=== PATIENT | male | born 1945 | race Caucasian/White ===

== ENCOUNTER 2018-11-25 05:03 | Inpatient (IN) | payer OTHER ==
[2018-11-25 05:46] LABS: PTT 99.8 SEC (22.9-36.1)
[2018-11-25 05:47] LABS: #Eosinphils 0.2 thou/uL (0.0-0.7); #Lymphocytes 0.8 thou/uL (1.20-3.40); #Monocytes 0.3 thou/uL (0.11-0.59); #Neutrophils 4.9 thou/uL (1.40-6.50); %Basophils 0.3 % (0.0-1.0); %Eosinophils 2.5 % (0.0-10.0); %Lymphocytes 12.2 % (21.0-51.0); %Monocytes 5.3 % (0.0-10.0); %Neutrophils 79.6 % (42.0-75.0); Hemoglobin 5.7 g/dL (14.0-18.0); Mean Corpuscular HGB CONC 33.5 g/dL (32.0-36.0); Mean Corpuscular Hemoglobin 30.1 pg (27.0-31.0); Mean Corpuscular Volume 89.6 fL (78.0-98.0); Platelet Count 192 thou/uL (130-400); RBC Distribution Width 14.9 % (11.5-14.5); Red Blood Cell (RBC) Count 1.89 mill/uL (4.70-6.10); White Blood Cell (WBC) Count 6.2 thou/uL (4.8-10.8)
[2018-11-25] MEDS ORDERED: Pantoprazole 40 MG VIAL ONE (05:49)
[2018-11-25] MEDS ORDERED: Ondansetron PF 4 MG/2 ML Vial ONE (05:57)
[2018-11-25 05:59] LABS: ALT (SGPT) 9 U/L (8-55); AST (SGOT) 15 U/L (5-34); Albumin 3.2 g/dL (3.4-4.8); Alkaline Phosphatase 100 U/L (40-150); Anion Gap 18 mmol/L (10-20); BUN (Urea Nitrogen) 112 mg/dL (8.4-25.7); Bilirubin, Total 0.3 mg/dL (0.2-1.2); Calc. Creatinine Clearance 0 mL/min (70-130); Calcium 6.1 mg/dL (7.8-10.44); Carbon Dioxide 23 mmol/L (23-31); Chloride 103 mmol/L (98-107); Estimated GFR-MDRD 22; Globulin 2.9 g/dL (2.4-3.5); Glucose 99 mg/dL (83-110); Lipase 38 U/L (8-78); Potassium 3.5 mmol/L (3.5-5.1); Protein, Total 6.1 g/dL (5.8-8.1); Sodium 140 mmol/L (136-145)
[2018-11-25 06:10] LABS: Prothrombin Time 61.4 SEC (12.0-14.7)
[2018-11-25 06:12] LABS: INR-International Normal Ratio 7.3
[2018-11-25 06:22] LABS: Bacteria/HPF None Seen HPF (None Seen); Bilirubin Negative (Negative); Blood, Urine Trace (Negative); Clarity Clear (Clear); Glucose, Urine (Dipstick) Normal (Negative); Leukocyte Negative Leu/uL (Negative); Nitrite Negative (Negative); Protein, Urine (Dipstick) 50 mg/dL (Neg-Trace); RBC/HPF 0-3 HPF (0-3); Squamous Epithelial None Seen HPF (0-3); Urobilinogen Normal mg/dL (Less than 2); WBC/HPF 0-3 HPF (0-3)
[2018-11-25 06:25] LABS: CKMB 6.7 ng/mL (0-6.6)
[2018-11-25] MEDS ORDERED: Phytonadione 10 MG/ML AMP SLOW IVP SCH (06:30)
[2018-11-25] MEDS ORDERED: HUMAN PROTHROMBIN COMPLX IV SCH (06:30)
[2018-11-25] MEDS ORDERED: ADMIXTURE FEE IV SCH (06:30)
[2018-11-25] MEDS ORDERED: Phytonadione 10 MG/ML AMP ONE (07:21)
[2018-11-25] MEDS: Sodium Chloride 0.9% 1,000 ML IV SCH ×3 (08:38→22:54)
[2018-11-25 08:45] LABS: INR-International Normal Ratio 2.2; Prothrombin Time 23.9 SEC (12.0-14.7)
--- NOTE | 2018-11-25 09:18 | HP ---
CHIEF COMPLAINT: Vomiting blood, feeling weak and tired. HISTORY OF PRESENT ILLNESS: The patient is a 73-year-old inmate, who was brought to the emergency room after he started having a bloody vomiting in [facility]. He was found to be on Coumadin, and his INR was elevated at above than 7, and he was treated with vitamin K and Kcentra, and he is getting admitted to the hospital. Also, he received vitamin K and normal saline, and started on Protonix drip and IV fluids. He never had this before. He denies any abdominal pain. He denies any black tarry stools, any shawn blood from the rectum. PAST MEDICAL HISTORY: Positive for, 1. Coronary artery disease. 2. Diabetes mellitus type 2. 3. Hyperlipidemia. 4. Hypertension. 5. Osteoarthritis. 6. COPD. 7. Gout. 8. CKD. 9. Heart failure. 10. Anemia. 11. CVA x6. PAST SURGICAL HISTORY: CABG. SOCIAL HISTORY: He is in assisted. He denies any alcohol use, drug use, or cigarette smoking history. MEDICATIONS: 1. Allopurinol 100 mg once a day. 2. Aspirin 81 mg once a day. 3. Atorvastatin 20 mg once a day. 4. Atrovent p.r.n. inhalations. 5. Docusate sodium 100 mg twice a day. 6. Ferrous sulfate 325 mg once a day. 7. Lasix 40 mg twice a day. 8. Omeprazole 20 mg daily. 9. Proventil inhalations p.r.n. 10. Terazosin 10 mg once a day. 11. Verapamil 120 mg once a day. 12. Warfarin 2.5 mg once a day. FAMILY HISTORY: Mother was 84 and she had Alzheimer's dementia, and father was 78 when he passed and he had COPD. REVIEW OF SYSTEMS: All 14 systems were reviewed and they are negative, except for only those symptoms, which are mentioned in the HPI are positive. PHYSICAL EXAMINATION: VITAL SIGNS: Blood pressure is 121/67, pulse is 109, respirations are 18, temperature is 97.8. Pain is at level 9. O2 saturation is 98% on room air. SKIN: Looks very pale. He is able to communicate with me. HEENT: His eyes are PERRLA. Sclerae are nonicteric. Conjunctiva pale. Oral mucosa pale. NECK: Supple. LUNGS: Clear. HEART: S1 and S2. Tachycardic. No S3. No S4. ABDOMEN: Soft, nontender, nondistended. EXTREMITIES: No clubbing, cyanosis, or edema. NEUROLOGICAL: He is alert and oriented x4. There is no any motor or sensory deficit. LABORATORY DATA: White count of 6.2, hemoglobin of 5.7, hematocrit of 16.9, platelet count is 192,000. Coagulation, INR is 7.3, PTT is 61.4, APTT 99.8. Normal electrolytes. BUN of 112, creatinine 2.85, calcium 6.1, albumin 3.2, lipase 38, alkaline phosphatase 100. Rest of chemistry is within normal limits. IMAGING STUDIES: EKG showed sinus tachycardia with ventricular rate of 117 beats per minute with premature atrial complexes. Q-waves in V1 and V2, and some ST-segment depression in V3, V4, V5, and V6. IMPRESSION: 1. Acute gastrointestinal bleeding, most likely upper part of the gastrointestinal tract. He does not have any history of esophageal varices. The patient was started on Protonix, and now he is on Protonix drip. 2. The patient is on Coumadin with supratherapeutic INR status post vitamin K and Kcentra treatment. We will check INR now stat, and we will make decision about the next dose of Kcentra if needed. 3. Severe anemia secondary to #1, and past medical history of anemia. We will transfuse him with 2 units of packed red blood cells and we will have 2 units on hold. 4. Renal failure, that is most likely acute on chronic. We will use IV fluids for now and assess his kidney function later today and tomorrow with BMP. 5. Coronary artery disease with elevated troponin, which is most likely type 2 and myocardial infarction. 6. Diabetes mellitus type 2. 7. Hyperlipidemia. 8. History of hypertension. 9. Osteoarthritis. 10. Chronic obstructive pulmonary disease. 11. History of gout. 12. History of heart failure. 13. History of cerebrovascular accident x6. PLAN: Full admission to ICU. Condition is guarded. IV fluids, normal saline at 125 mL/hour. We will transfuse him with 2 units of packed red blood cells. We will hold 2 more units. We will get GI consult with Dr. Curtis, who is on-call today. We will continue his Protonix drip at 10 mg/hour. We will check his INR and see whether he needs additional dose of Kcentra, if it is more than 1.5. Also, we will reconcile his home medications, and we will get Cardiology involved. Job ID: [id number]
--- NOTE | 2018-11-25 11:56 | CON ---
DATE OF CONSULTATION: 11/25/2018 INDICATION FOR CONSULTATION: A 73-year-old gentleman with a GI bleed and severe anemia. He had been placed recently on Coumadin at a large dose of 7.5 mg a day and has now developed severe bleeding. He started having nausea and vomiting apparently while he was in the senior care, who has been incarcerated for almost 10 or 15 years. He said he had been on Coumadin due to atrial fibrillation. He also has an implantable loop recorder apparently, and he says it is from [employer], but we do not have any other further information. He said he lost the monitor and has not been able to check it recently, but we will try to interrogate that device. Other than that he has had a history of coronary artery disease. He is status post bypass surgery x3, apparently 3 or 4 years ago. He has not had any preop previous stents. He did have some renal insufficiency apparently after the surgery and had been on dialysis, which was stopped about a year ago and he has been relatively stable. He denies any chest pain at this time but EKG did show some nonspecific ST-segment changes in the lateral leads, could be compatible with ischemia. Also, cardiac enzymes are slightly elevated with a troponin I of 0.541, which would not be unusual with someone with severe anemia and history of coronary artery disease and appears to be a type 2 non-myocardial infarction. At this time, he is comfortable. He denies any chest pain or shortness of breath. He did have some mild abdominal discomfort. He complains of mainly his joint pain due to his gout. PAST MEDICAL HISTORY: Significant for coronary artery disease and bypass surgery x3, we are uncertain as to which vessels were bypassed and exact extent of his disease. We will try to obtain those records from [place] where surgery was performed. He has history of type 2 diabetes, hyperlipidemia, hypertension, osteoarthritis. He has gout, COPD. He has chronic kidney disease, creatinine is 2.85. He has some history of congestive heart failure apparently, but I do not have any records whether this is a diastolic or systolic or both. He has had several CVAs in the past. He has had an AV fistula placed in the right forearm. He has had an implantable loop recorder placed. SOCIAL HISTORY: He is incarcerated. He has no alcohol or tobacco abuse at this time. He did smoke in the past, but stopped many years ago obviously. ALLERGIES: HE SAYS HE IS ALLERGIC TO IODINE AND IODINE-CONTAINING PRODUCTS. MEDICATIONS: Prior to admission include, 1. Allopurinol. 2. Aspirin 81 mg a day. 3. Atorvastatin 20 mg a day. 4. Atrovent inhalers. 5. Docusate sodium. 6. Ferrous sulfate 325 mg a day. 7. Lasix 40 mg b.i.d. 8. Omeprazole 20 mg a day. 9. Proventil inhalers as needed. 10. He was taking terazosin 10 mg a day. 11. Verapamil 120 mg once a day. 12. Warfarin 2.5 mg taking three tablets a day, which is equivalent of 7.5 mg daily. He had been on this for quite some time. He was scheduled to be on it for 30 days. Unfortunately, this is obviously too high dose for this patient. FAMILY HISTORY: Mother had Alzheimer's. Father and had history of COPD, age 78. REVIEW OF SYSTEMS: He mainly complained of pain in all of his joints, and he complained of some mild abdominal discomfort, nausea, and vomiting associated with the hematemesis just recently with the elevated INR and the over anticoagulation. He has some difficulty ambulating. He has walked with a walker in the past. Previously, he was in a wheelchair, but has now had therapy and is able to at least walk some. Otherwise, he denied any other complaints on 12-point review of systems. PHYSICAL EXAMINATION: GENERAL: Reveals a pale elderly gentleman, who appears to be very ill. VITAL SIGNS: Blood pressure at this time is 109/56, heart rate is 105 and it shows a sinus rhythm, respiratory rate is 22. He is afebrile, O2 saturation is 100%. HEENT: Shows the head to be normocephalic and atraumatic. Carotid pulses are present. Does not hear any significant bruits. CHEST: Clear to auscultation without rales, rhonchi, or wheezing. CARDIOVASCULAR: Reveals a regular rhythm, slight tachycardia. I do not hear any significant murmurs, heaves, thrills, bruits, or rubs. Normal S1 and S2 present. ABDOMEN: Soft. Mild tenderness is noted. Positive bowel sounds are present. EXTREMITIES: Showed no clubbing or cyanosis. He has obvious evidence of arthritis as well as gouty nodules on the right elbow significantly. He also has a previously placed shunt in the right forearm and the upper arm also extends, but this is occluded. There is no bruit noted. There is no palpable thrill. NEUROLOGIC: He appears to be intact. There are no gross focal motor deficits. LABORATORY DATA: Shows a hemoglobin of 5.7, hematocrit of 16.9, WBC of 6.2, and platelet count of 192,000. INR was 7.3. His BUN is 112, his creatinine is 2.85, potassium is 3.5, sodium is 140, bicarb is 23, chloride is 109, blood sugar is 99. His calcium level is also low at 6.1. MB was 6.7 with a troponin I of 0.541. IMAGING STUDIES: I do not see a chest x-ray. EKG shows a sinus rhythm or sinus tachycardia with nonspecific ST-segment changes in the lateral leads. At this time, he is being given blood. He will need to have a GI evaluation. We will certainly need to hold the anticoagulation. I believe he has already been given vitamin K for reversal of the Coumadin. In the future, he will need to have a lower dose obviously of the Coumadin. If this is absolutely necessary, he may not be a candidate for Coumadin, may need to be on aspirin alone, if he is able to recover from the GI bleed. IMPRESSION: 1. Acute gastrointestinal bleed due to over anticoagulation with Coumadin. This has now been stopped, and he will have a GI evaluation. He will no longer be able to be on Coumadin at this time. Maybe perhaps in the future if they are able to cauterize the ulcer, and if once this has healed, he maybe able to go back on Coumadin, but at a lower dose. 2. Coronary artery disease. He does have some nonspecific ST-segment changes and appears to have had a type 2 myocardial infarction, most likely due to demand ischemia associated with the anemia. 3. Severe anemia associated with gastrointestinal bleed. 4. Type 2 diabetes. This will be dealt with by the primary care service. 5. Hypertension. He is actually hypotensive at this time and appears to be stable. He has had no significant other acute problems associated with the hypotension. He has had some history of congestive heart failure. We may obtain an echocardiogram. He said recently earlier this year he was in [place] and had an echocardiogram performed at that time. We will try to obtain those records. Would suggest maybe an echocardiogram later depending on the status of the patient and how he recovers from the GI bleed. 6. History of cerebrovascular accidents in the past. He is able to speak and has not had any gross focal motor deficit at this time. No major weaknesses. I will be more than happy to continue to follow the patient with you. Can trend his enzymes. At this time, obviously he is not a candidate for any type of intervention. He is not a candidate for oral anticoagulation or heparin or any other anticoagulation at this time. Hopefully, these will stabilize. We will try to obtain the records from [place] as to exactly what the type of bypasses he had and also to the extent of his coronary artery disease. We will also need to obtain the echocardiogram results for evaluation of the ejection fraction. At this time, I have no significant further recommendations in this patient who is obviously severely anemic. Job ID: [id number]
[2018-11-25] MEDS: Ondansetron PF 4 MG/2 ML Vial IVP PRN (13:25)
[2018-11-25] MEDS: Pantoprazole 80 MG, Admixture Fee 1 EACH in Sodium Chloride 0.9% 100 ML IVPB SCH (15:34)
[2018-11-25] MEDS: Promethazine HCl 12.5 MG in Sodium Chloride 0.9% 50 ML IVPB PRN ×2 (15:34→23:32)
[2018-11-25] MEDS: Acetaminophen 325 MG TAB PO PRN (16:12)
[2018-11-25 16:30] LABS: Hemoglobin 8.2 g/dL (14.0-18.0)
--- NOTE | 2018-11-25 20:44 | CON ---
DATE OF CONSULTATION: 11/25/2018 REASON FOR CONSULTATION: Hematemesis, anemia. CONSULTING PROVIDER: Sami Hand MD HISTORY OF PRESENT ILLNESS: The patient is a 73-year-old male with past medical history of coronary artery disease, diabetes, hyperlipidemia, hypertension, osteoarthritis, COPD, gout, chronic kidney disease, chronic anemia, congestive heart failure, and cerebrovascular accident x6, presenting with complaints of hematemesis. He states that he was in his usual state of health until earlier today when he began to have increased GI upset, weakness, lightheadedness, and increased nausea. Ultimately, this culminated into a dark coffee-ground emesis x1 in addition to multiple dry heaves afterward, but no additional episodes of this coffee-ground material nor any gross hematemesis. He then had approximately 3 darker colored/black bowel movements over the next 6 to 12 hours that were semi-solid to liquid in consistency and possibly contained a small amount of bright red blood per rectum. With the increased vomiting of darker colored material, it was concerning for possible GI bleeds. He was ultimately transferred to [facility] for further evaluation. On evaluation in the ED, he was noted to have significantly decreased hemoglobin and hematocrit as well as a profoundly high INR of approximately 7. He was ultimately treated with vitamin K and Kcentra, and admitted to the [facility] for further evaluation and management. Currently, he states that his right shoulder, right arm, wrists, and knees heard in addition to continue nausea and vomiting with more dry heaves than actual emesis. However, he denies any fevers, chills, abdominal pain, constipation, dysphagia, odynophagia, or recent unexplained weight loss. REVIEW OF SYSTEMS: A 10-category review of systems was obtained with all responses negative except for the pertinent positives as listed in HPI. PAST MEDICAL HISTORY: As per HPI. PAST SURGICAL HISTORY: Coronary artery bypass graft. FAMILY HISTORY: Denies any GI malignancies. SOCIAL HISTORY: Denies any tobacco, alcohol, or illicit drug use. He is currently incarcerated in penitentiary. OUTPATIENT MEDICATIONS: Reviewed. ALLERGIES: IODINE. PHYSICAL EXAMINATION: VITAL SIGNS: Temperature 98.1, pulse 100, blood pressure 95/40, respiratory rate 22, and saturating 99% on room air. GENERAL: The patient was lying in bed, in mild distress. Alert and oriented x4. HEENT: Normocephalic and atraumatic. NECK: Supple. No JVD or scleral icterus noted. CARDIOVASCULAR: Regular rate and rhythm, although be at tachycardic rate. No discernible murmurs, gallops, or rubs. RESPIRATORY: Clear to auscultation bilaterally with no discernible wheezes or rales. ABDOMEN: Normoactive bowel sounds. Soft, nontender, nondistended. EXTREMITIES: No cyanosis, clubbing, or edema. LABORATORY DATA: CBC with a white blood cell count of 6.2, hemoglobin 5.7, hematocrit 16.9, platelets 192. INR went from 7.3 to 2.2 with administration of vitamin K and Kcentra. Chemistry with a sodium of 140, potassium 3.5, chloride 103, CO2 23, BUN 112, creatinine 2.85, glucose 99, AST 15, ALT 9, alkaline phosphatase 100, total bilirubin 0.3, albumin 3.2. IMAGING DATA: No current GI imaging is available for review. ASSESSMENT AND PLAN: The patient is a 73-year-old male with past medical history of coronary artery disease, diabetes, hyperlipidemia, hypertension, osteoarthritis, chronic obstructive pulmonary disease, gout, chronic kidney disease, chronic anemia, congestive heart failure, and cerebral vascular accident x6, currently on full anticoagulation with Coumadin, presenting with hematemesis and a significant anemia related to a supratherapeutic INR of 7. 1. Hematemesis. 2. The patient had acute onset of black colored emesis earlier this morning that was accompanied by black-colored stools concerning for an upper gastrointestinal bleed. Upon initial evaluation in [facility], he was noted to have a significantly decreased hemoglobin and hematocrit in addition to a profoundly high INR of 7. He was ultimately given vitamin K and Kcentra, and his INR has corrected to 2.2 at this time. However, given his decreased hemoglobin and hematocrit in the black-colored emesis, he is strongly concerning for an upper gastrointestinal bleeding source related to his supratherapeutic INR. With the supratherapeutic INR, he could be bleeding from any mucosal surface with the differential including esophagitis, gastritis, duodenitis, arteriovenous malformation, Dieulafoy lesion, hiatal hernia, peptic ulcer disease, and/or gastrointestinal neoplasm. RECOMMENDATIONS: 1. We will continue to trend his hemoglobin and hematocrit and transfuse as necessary to maintain hemoglobin and hematocrit of 7/21. 2. Continue to monitor clinically for signs of active GI bleeding. 3. Continue with reversal of warfarin with vitamin K agonist. 4. We will continue Protonix drip until after upper endoscopy. 5. We will place the patient on n.p.o. status with plans for EGD tomorrow morning once the patient's INR has been corrected and he has been properly resuscitated with blood product. We will continue to follow. Please call with any questions. Job ID: [id number]
[2018-11-25 22:54] LABS: Hemoglobin 7.2 g/dL (14.0-18.0)
[2018-11-26 00:35] LABS: Hemoglobin 6.9 g/dL (14.0-18.0)
[2018-11-26] MEDS: Acetaminophen 325 MG TAB PO PRN (02:33)
[2018-11-26] MEDS: Pantoprazole 80 MG, Admixture Fee 1 EACH in Sodium Chloride 0.9% 100 ML IVPB SCH (02:37)
[2018-11-26] MEDS: traMADol HCl 50 MG TAB PO PRN (03:48)
[2018-11-26 03:56] LABS: Anion Gap 20 mmol/L (10-20); BUN (Urea Nitrogen) 114 mg/dL (8.4-25.7); Calc. Creatinine Clearance 22 mL/min (70-130); Carbon Dioxide 16 mmol/L (23-31); Chloride 112 mmol/L (98-107); Estimated GFR-MDRD 21; Glucose 78 mg/dL (83-110); Potassium 3.6 mmol/L (3.5-5.1); Sodium 144 mmol/L (136-145)
[2018-11-26 03:59] LABS: Calcium 5.9 mg/dL (7.8-10.44)
[2018-11-26] MEDS: Ondansetron PF 4 MG/2 ML Vial IVP PRN (06:14)
[2018-11-26] MEDS ORDERED: Ketamine 50 MG/ML (10ML VIAL) ONE (07:50)
[2018-11-26] MEDS ORDERED: Promethazine HCl 25 MG/ML VIAL SLOW IVP PRN (08:00)
[2018-11-26] MEDS ORDERED: Promethazine HCl 25 MG/ML VIAL IM PRN (08:00)
[2018-11-26] MEDS ORDERED: Ondansetron HCl/PF 4 MG/2 ML Vial IVP PRN (08:00)
[2018-11-26] MEDS ORDERED: Albuterol Sulfate 1.25 MG/3 ML NEB ONE (08:47)
[2018-11-26] MEDS ORDERED: Promethazine HCl 25 MG/ML VIAL ONE (09:13)
[2018-11-26] MEDS: Sodium Chloride 0.9% 1,000 ML IV SCH ×3 (09:46→21:18)
[2018-11-26 10:03] LABS: Hemoglobin 8.3 g/dL (14.0-18.0)
--- NOTE | 2018-11-26 10:08 | OP ---
DATE OF PROCEDURE: 11/26/2018 PROCEDURE PERFORMED: Esophagogastroduodenoscopy with control of hemorrhage. INDICATIONS FOR PROCEDURE: Hematemesis, melena, supratherapeutic INR. DESCRIPTION OF PROCEDURE: After the risks and benefits of the procedure were explained to the patient including risks of bleeding, infection, perforation, reactions to anesthesia, aspiration, and/or pain, informed consent was obtained. The patient was then taken to the endoscopy suite, where general anesthesia was administered with endotracheal tube intubation. Once the patient was sedated and intubated, he was maneuvered into the left lateral decubitus position. Once the patient was in appropriate position, the standard gastroscope was introduced into the mouth with intubation of the esophagus, stomach, and the proximal small intestines with the findings listed below. The patient tolerated the procedure well with no immediate perioperative complications. Upon conclusion of the procedure, all equipment was removed from the patient and he was transferred to PACU in satisfactory condition. FINDINGS: Esophagus: Normal-appearing mucosa was seen in the proximal, mid, and distal esophagus. There was no evidence of erosions, ulcerations, mass, lesions, or active/recent bleeding. Stomach: Two patches of superficial ulceration/erosions were seen in the gastric cardia and fundus measuring approximately 1 to 1.5 cm in diameter. The superficial erosion seen in the gastric cardia did not exhibit any evidence of active/recent bleeding. However, the patch within the gastric fundus did have an area of deeper ulceration with an overlying clot with one of these ulcerations measuring 1 to 2 mm in size. This area of superficial ulceration with high-risk stigmata was then treated with bipolar cauterization with a 7-Vietnamese bipolar cautery probe with good hemostasis achieved after the maneuver and no further bleeding afterwards. 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 Lastly, a small red spot was seen in the proximal gastric fundus with a white center concerning for a fibrin clot. Given this high-risk stigmata, this was also treated with bipolar cauterization with a 7-Vietnamese probe with good hemostasis achieved. Otherwise, normal-appearing mucosa was seen in the distal gastric body, greater curvature, antrum, and incisura. There were no other lesions indicative of a possible bleeding source. There was no evidence of mass, lesions, or blood throughout the entire stomach other than the small clot as stated above. Duodenum: Normal-appearing mucosa was seen in both the duodenal bulb and second portion of the duodenum. There was no evidence of erosions, ulcerations, mass, lesions, or active/recent bleeding. IMPRESSION: 1. Two patches of superficial erosion/ulcerations seen in the gastric cardia and fundus with the fundus patch exhibiting an overlying clot concerning for gastrointestinal bleeding, now status post bipolar cauterization. 2. 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 3. 1 to 2 mm red spot with a possible fibrin clot in the gastric fundus status post bipolar cauterization. RECOMMENDATIONS: 1. We will continue to trend his H and H and transfuse as necessary to maintain an H and H of 7/21. 2. Continue to monitor clinically for signs of active GI bleeding. 3. Can transfer the patient to pantoprazole 40 mg IV b.i.d. 4. Can place the patient on a clear liquid diet for today and advance possibly tomorrow. 5. We will continue to monitor in IMCU setting format for today, and if stable, could potentially be downgraded tomorrow. 6. Would avoid any NSAIDs during this admission or anticoagulation. We will continue to follow. Please call with any questions. Job ID: [id number]
[2018-11-26] MEDS ORDERED: Prevnar 13-Val Conj/PF 0.5 ML SYRINGE IM ONE (10:45)
[2018-11-26 11:18] LABS: CKMB 190.2 ng/mL (0-6.6)
--- NOTE | 2018-11-26 12:32 | CON ---
DATE OF CONSULTATION: HISTORY OF PRESENT ILLNESS: He is a 73-year-old gentleman from the [facility] in [place], presented with nausea, vomiting, and GI bleed. List of medical problems that brought in from the unit, which includes multiple. This morning, he is feeling better. No further nausea or vomiting. He underwent an endoscopy, I am told. PAST MEDICAL HISTORY: CHF, coronary artery disease, hypertension, hyperlipidemia, diabetes, COPD, former smoker, BPH, hepatitis C, chronic back problems, chronic renal failure. MEDICATIONS: 1. Terazosin 10. 2. Verapamil 120. 3. Atrovent inhaler. 4. Ferrous sulfate. 5. Lipitor. 6. Aspirin. 7. Allopurinol. 8. Albuterol. 9. Coumadin 3. 10. Verapamil 240. 11. Omeprazole 20. 12. Lasix 40. He is now on a Protonix drip. ALLERGIES: IODINE. SOCIAL HISTORY: Tobacco, quit 15 years ago. PAST SURGICAL HISTORY: His surgeries are otherwise included previous CABG apparently. REVIEW OF SYSTEMS: Negative. PHYSICAL EXAMINATION: VITAL SIGNS: Saturations are 98%, blood pressure 91/40, respiratory rate is 18. CHEST: No wheezing or crackles. CARDIAC: Normal S1 and S2. No gallop. ABDOMEN: No mass. IMPRESSION: Chronic obstructive pulmonary disease, gastrointestinal bleed, coronary artery disease, hepatitis, hypertension, atrial fibrillation. PLAN: X-ray being ordered. Neb treatment initiated. GI bleed status post endoscopy. Plan on Protonix, supportive care. We will follow while in the MICU. Consultation note, 70 minutes, 50% direct patient care. Job ID: [id number]
--- NOTE | 2018-11-26 13:06 | PRG ---
DATE OF SERVICE: 11/26/2018 SUBJECTIVE: The patient is seen and examined at the bedside. He just came back from his procedure. He says that it was quite rough, but he talked to the doctor who found some spots, which were most likely the source of bleeding and he cauterized those spots. OBJECTIVE: VITAL SIGNS: Blood pressure is 91/49, pulse is 84, respiratory rate is 21, O2 saturation is 91%. SKIN: Pale. HEENT: Conjunctivae, palish. Sclerae are nonicteric. Oral mucosa is moist. LUNGS: Clear. HEART: S1 and S2 normal. No S3. No S4. ABDOMEN: Soft, nontender. Bowel sounds are present. EXTREMITIES: No clubbing, cyanosis, or edema. He has his hands and feet in cuffs. NEUROLOGIC: He is able to answer my questions. LABORATORY DATA: Hemoglobin of 8.3, hematocrit 24.4. Sodium of 144, potassium 3.6, chloride 112, CO2 of 16, BUN 114, creatinine 2.98, glucose 78, calcium 5.9. Troponin I and CK-MB is 190. IMPRESSION: 1. 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 The patient is switched to pantoprazole 40 mg IV push twice a day. He will be started on clear liquids for today and the diet will be advanced possibly tomorrow. 2. Acute myocardial infarction. Because of the current active bleeding, we were not able to use any anti-platelet medications or anticoagulation medication. Cardiology is following. Echocardiogram came back with left ventricular ejection fraction estimated at 30% to 35%. 3. Diabetes mellitus, type 2. 4. Hyperlipidemia. 5. History of hypertension. 6. Osteoarthritis. 7. Chronic obstructive pulmonary disease. 8. History of gout. 9. History of heart failure. 10. History of cerebrovascular accident x6. DISCUSSION: The situation is very difficult because at this point, the patient's bleeding is stopped, but he developed acute VA. We were not able to use any antiplatelets or anticoagulation on this patient because of the acute GI bleeding and Cardiology will make recommendations. We will continue his Protonix in IV push form. As mentioned above, his diet will be started on clear liquids and see how he tolerates that and it will be advanced most likely tomorrow. He is in high risk for cardiac arrhythmias and because of his severe anemia, although his hemoglobin is better today at the level of 8.3. Job ID: [id number]
[2018-11-26] MEDS ORDERED: Calcium Gluc 4.6 MEQ/10 ML (100 MG/ML) SLOW IVP SCH (13:07)
--- NOTE | 2018-11-26 13:34 | RAD ---
EXAM: XR Chest 1 View Portable PROVIDED CLINICAL HISTORY: Congestive heart failure COMPARISON: 10/22/2016 FINDINGS: Cardiac silhouette appears enlarged, which may be least partially on the basis of portable technique. Median sternotomy changes are noted. Vascular calcification is seen. Implanted loop recorder device overlies the left chest. Blunting of the left costophrenic angle. Prominence of the pulmonary vasculature. No evidence for pneumothorax or focal consolidation. IMPRESSION: Cardiomegaly and prominence of the pulmonary vasculature may reflect the provided clinical history of congestive failure. Blunting of left costophrenic angle may reflect small pleural effusion.
[2018-11-26 16:01] LABS: CKMB 152.9 ng/mL (0-6.6)
--- NOTE | 2018-11-26 16:07 | CON ---
DATE OF CONSULTATION: 11/26/2018 CONSULTING PHYSICIAN: Dr. Sami Hand. REASON FOR CONSULTATION: Acute kidney injury and hypocalcemia. REASON FOR ADMISSION: Vomiting. HISTORY OF PRESENT ILLNESS: This is a 73-year-old male with history of coronary artery disease, diabetes, hypertension, hyperlipidemia, CKD, gout, came to the hospital with above complaints and was found to be hypocalcemic. He does have a history of end-stage renal disease, was on dialysis for a while and it was taken off. The patient denies any chest pain, but his troponin is elevated. No nausea or vomiting. No abdominal pain. PAST MEDICAL HISTORY: Positive for; 1. Coronary artery disease. 2. Type-2 diabetes. 3. Hypertension. 4. Hyperlipidemia. 5. Osteoarthritis. 6. COPD. 7. Gout. 8. CKD. 9. CHF. 10. Anemia. 11. CVA. PAST SURGICAL HISTORY: CABG. HOME MEDICATIONS: Reviewed. ALLERGIES: IODINE AND IODIDE. SOCIAL HISTORY: No smoking, alcohol, or illicit drugs. FAMILY HISTORY: No history of kidney disease. REVIEW OF SYSTEMS: CONSTITUTIONAL: Negative for weight loss or gain, ability to conduct usual activities. SKIN: Negative for rash, itching. EYES: Negative for double vision, pain. ENT/MOUTH: Negative for nose bleeding, neck stiffness, pain, tenderness. CARDIOVASCULAR: Negative for palpitations, dyspnea on exertion, orthopnea. RESPIRATORY: Negative for shortness of breath, wheezing, cough, hemoptysis, fever or night sweats. GASTROINTESTINAL: Negative for poor appetite, abdominal pain, heartburn, nausea, vomiting, constipation, or diarrhea. GENITOURINARY: Negative for urgency, frequency, dysuria, nocturia. MUSCULOSKELETAL: Negative for pain, swelling. NEUROLOGIC/PSYCHIATRIC: Negative for anxiety, depression. ALLERGY/IMMUNOLOGIC: Negative for skin rash, bleeding tendency. PHYSICAL EXAMINATION: GENERAL: This is a well-built male, in no apparent distress. VITAL SIGNS: Temperature 98.0, pulse 94, respiratory rate 20, and blood pressure 150/74. HEENT: Atraumatic, normocephalic. Oral mucosa moist. NECK: Supple. CARDIOVASCULAR: S1 and S2 heard. Rate and rhythm are regular. RESPIRATORY: Clear to auscultation. GASTROINTESTINAL: Abdomen is soft. MUSCULOSKELETAL: 1+ edema. DERMATOLOGIC: No skin rash. NEUROLOGIC: Alert and awake. PSYCHIATRIC: Normal mood and affect. LABORATORY DATA: Hemoglobin is 8.3. Potassium is 3.6, BUN is 114, creatinine is 2.9. ASSESSMENT AND PLAN: 1. Acute kidney injury on chronic kidney disease stage 4. No acute indication for dialysis. 2. Elevated BUN. 3. Elevated troponin. 4. Cardiorenal syndrome. 5. Anemia, status post transfusion. 6. Hypocalcemia. The patient has history of . We will start on calcium supplements with vitamin D. Check vitamin D levels and PTH level. We will monitor. Continue supplements as tolerated. Thank you for the consult. Job ID: [id number]
[2018-11-26] MEDS ORDERED: Ondansetron PF 4 MG/2 ML Vial ONE (16:08)
[2018-11-26] MEDS ORDERED: Rocuronium Bromide 10 MG/ML (10ML VIAL) ONE (16:08)
[2018-11-26] MEDS ORDERED: Succinylcholine Chloride 20 MG/ML 10 ml SYRINGE FS ONE (16:08)
[2018-11-26] MEDS: Calcium Carbonate 500 MG TAB PO SCH (17:07)
[2018-11-26] MEDS: Pantoprazole 40 MG VIAL IVP SCH (21:17)
[2018-11-27 05:59] LABS: #Eosinphils 0.2 thou/uL (0.0-0.7); #Lymphocytes 0.5 thou/uL (1.20-3.40); #Monocytes 0.5 thou/uL (0.11-0.59); #Neutrophils 6.3 thou/uL (1.40-6.50); %Basophils 0.3 % (0.0-1.0); %Eosinophils 2.6 % (0.0-10.0); %Lymphocytes 6.5 % (21.0-51.0); %Monocytes 6.4 % (0.0-10.0); %Neutrophils 84.2 % (42.0-75.0); Hemoglobin 7.2 g/dL (14.0-18.0); Mean Corpuscular HGB CONC 34.4 g/dL (32.0-36.0); Mean Corpuscular Hemoglobin 31.3 pg (27.0-31.0); Mean Corpuscular Volume 91.2 fL (78.0-98.0); Mean Platelet Volume 7.3 fL (7.4-10.4); Platelet Count 182 thou/uL (130-400); RBC Distribution Width 14.9 % (11.5-14.5); White Blood Cell (WBC) Count 7.5 thou/uL (4.8-10.8)
[2018-11-27 06:22] LABS: Anion Gap 12 mmol/L (10-20); BUN (Urea Nitrogen) 92 mg/dL (8.4-25.7); Calc. Creatinine Clearance 21 mL/min (70-130); Carbon Dioxide 22 mmol/L (23-31); Chloride 115 mmol/L (98-107); Estimated GFR-MDRD 19; Glucose 103 mg/dL (83-110); Sodium 146 mmol/L (136-145)
[2018-11-27 06:23] LABS: CK (CPK) 942 U/L (30-200); Phosphorus 3.6 mg/dL (2.3-4.7)
[2018-11-27 06:24] LABS: Calcium 5.7 mg/dL (7.8-10.44); Potassium 2.9 mmol/L (3.5-5.1)
--- NOTE | 2018-11-27 07:43 | PDOC.HOSPP ---
- Subjective Encounter Date: 11/27/18 Encounter Time: 07:41 Subjective: much improved, no specificc complaint - Objective Vital Signs & Weight: Vital Signs (12 hours) Temp Pulse Resp Pulse Ox 11/27/18 07:23 97.7 F 11/27/18 07:08 97 18 11/27/18 04:00 98.0 F 11/27/18 00:00 98.5 F 11/26/18 20:00 98.9 F 98 Weight Weight 163 lb 12.855 oz Most Recent Monitor Data Heart Rate from ECG 100 NIBP 110/55 NIBP BP-Mean 73 Respiration from ECG 23 SpO2 95 I&O: 11/26/18 11/27/18 11/28/18 06:59 06:59 06:59 Intake Total 2635 2300 Output Total 350 550 Balance 2285 1750 Result Diagrams: 11/27/18 05:41 11/27/18 05:41 Additional Labs: Accuchecks 11/26/18 08:44 POC Glucose 100 Hospitalist ROS - Medication Medications: Active Medications Generic Name Dose Route Start Last Admin Trade Name Freq PRN Reason Stop Dose Admin Acetaminophen 650 mg 11/25/18 08:13 11/26/18 02:33 Tylenol PO 650 mg Q4H PRN Administration Headache/Fever/Mild Pain (1-3) Calcium Carbonate 500 mg 11/26/18 17:00 11/26/18 17:07 Oscal-500 PO 500 mg TID-WM FERNANDO Administration Promethazine HCl 12.5 mg/ 50.5 mls @ 202 mls/hr 11/25/18 14:52 11/25/18 23:32 Sodium Chloride IVPB 50.5 mls Q6H PRN Administration Nausea Sodium Chloride 1,000 mls @ 75 mls/hr 11/26/18 07:48 11/26/18 21:18 Normal Saline 0.9% IV 1,000 mls .[id number] FERNNADO Administration Ondansetron HCl 4 mg 11/25/18 08:13 11/26/18 06:14 Zofran IVP 4 mg Q6H PRN Administration Nausea/Vomiting Pantoprazole Sodium 40 mg 11/26/18 21:00 11/26/18 21:17 Protonix IVP 40 mg Q12HR FERNANDO Administration Sodium Chloride 10 ml 11/26/18 09:00 11/26/18 21:18 Flush - Normal Saline IVF 10 ml Q12HR FERNANDO Administration Tramadol HCl 50 mg 11/26/18 03:33 11/26/18 03:48 Ultram PO 50 mg Q6H PRN Administration Moderate Pain (4-6) - Exam General Appearance: NAD Neck: no JVD Heart: RRR, no murmur Respiratory: CTAB, no wheezes Gastrointestinal: soft, non-distended, normal bowel sounds Extremities: no cyanosis, no clubbing, no edema Hosp A/P (1) Anemia due to blood loss, acute Code(s): D62 - ACUTE POSTHEMORRHAGIC ANEMIA Status: Acute (2) Upper gastrointestinal hemorrhage Code(s): K92.2 - GASTROINTESTINAL HEMORRHAGE, UNSPECIFIED Status: Acute (3) Warfarin-induced coagulopathy Code(s): D68.32 - HEMORRHAGIC DISORD D/T EXTRINSIC CIRCULATING ANTICOAGULANTS; T45.515A - ADVERSE EFFECT OF ANTICOAGULANTS, INITIAL ENCOUNTER Status: Acute (4) Atrial fibrillation with controlled ventricular response Code(s): I48.91 - UNSPECIFIED ATRIAL FIBRILLATION Status: Acute (5) CAD (coronary artery disease) Code(s): I25.10 - ATHSCL HEART DISEASE OF [place] CORONARY ARTERY W/O ANG PCTRS Status: Acute Qualifiers: Coronary Disease-Associated Artery/Lesion type: [place] artery [place] vs. transplanted heart: [place] heart Associated angina: without angina Qualified Code(s): I25.10 - Atherosclerotic heart disease of [place] coronary artery without angina pectoris (6) DM type 2 causing CKD stage 4 Code(s): E11.22 - TYPE 2 DIABETES MELLITUS W DIABETIC CHRONIC KIDNEY DISEASE; N18.4 - CHRONIC KIDNEY DISEASE, STAGE 4 (SEVERE) Status: Acute Qualifiers: Diabetes mellitus alf insulin use: without long term acute care registered nurse use Qualified Code(s): E11.22 - Type 2 diabetes mellitus with diabetic chronic kidney disease ; N18.4 - Chronic kidney disease, stage 4 (severe) (7) HTN (hypertension) Code(s): I10 - ESSENTIAL (PRIMARY) HYPERTENSION Status: Chronic Qualifiers: Hypertension type: essential hypertension Qualified Code(s): I10 - Essential (primary) hypertension - Plan Consults: Palliative Care cont serial H&H, transfuse for Hg< 7 cont iv PPI hold anticoag selected home meds
[2018-11-27] MEDS ORDERED: Potassium Chloride 20 MEQ TAB PO SCH (08:00)
[2018-11-27] MEDS ORDERED: Magnesium 2 GM/50 ML 2 GM in Premix Bag 1 BAG IVPB SCH (08:45)
--- NOTE | 2018-11-27 09:59 | PRG ---
DATE OF SERVICE: 11/27/2018 SUBJECTIVE: This morning, he is better. OBJECTIVE: VITAL SIGNS: Temperature 97, pulse 70, respiratory rate 18, and blood pressure 110/55. CHEST: No wheezing or crackles. CARDIAC: Normal S1 and S2. No gallops. ABDOMEN: No masses. LABORATORY DATA: Creatinine is 3, BUN is 92, and calcium 5.7. H and H of 7 and 21 and platelet count is 182. ASSESSMENT: 1. Gastrointestinal bleed. 2. Azotemia. 3. Chronic obstructive pulmonary disease. PLAN: Continue Protonix. Supportive care, PT. Slow hydration. We will follow. Job ID: [id number]
[2018-11-27] MEDS: Ferrous Sulfate 325 MG TAB PO SCH (10:10)
[2018-11-27] MEDS: Calcium Carbonate 500 MG TAB PO SCH ×3 (10:10→17:14)
[2018-11-27] MEDS: Allopurinol 100 MG TAB PO SCH (10:10)
[2018-11-27] MEDS: Atorvastatin Calcium 20 MG TAB PO SCH (10:11)
[2018-11-27] MEDS: Terazosin HCl 5 MG CAP PO SCH (10:11)
[2018-11-27] MEDS: Ergocalciferol 1.25 MG(50,000 UNITS) CAP PO SCH (10:11)
[2018-11-27] MEDS: Pantoprazole 40 MG VIAL IVP SCH ×2 (10:15→20:50)
--- NOTE | 2018-11-27 11:14 | PRG ---
DATE OF SERVICE: 11/27/2018 REASON FOR CONSULTATION: Hematemesis, anemia, gastric ulcers. SUBJECTIVE: The patient did well overnight with no acute events or problems per the patient and per nursing staff. He has not had any further episodes of hematemesis or melena. He states that his abdominal discomfort has also subsided and that he is "150% better." Currently, he denies any nausea, vomiting, fevers, chills, abdominal pain, hematemesis, melena, or hematochezia. OBJECTIVE: VITAL SIGNS: Temperature 97.7, pulse 97, blood pressure 110/55, respiratory rate 18, and saturating 95% on room air. GENERAL: The patient was lying in bed, in no acute distress. Alert and oriented x4. CARDIOVASCULAR: Tachycardic rate, but regular rhythm. RESPIRATORY: Clear to auscultation bilaterally. ABDOMEN: Normoactive bowel sounds. Soft, nontender, and nondistended. EXTREMITIES: No cyanosis, clubbing, or edema. LABORATORY DATA: CBC with a white blood cell count of 7.5, hemoglobin 7.2, hematocrit 21, and platelets 182. Chemistry with a sodium of 146, potassium 2.9, chloride 115, CO2 of 22, BUN 92, creatinine 3.23, and glucose 103. IMAGING DATA: The patient underwent upper endoscopy on November 26, 2018, which showed 2 patches of superficial ulceration in the gastric cardia and fundus with a clot overlying one of these patches that was subsequently treated with bipolar cauterization. A 1-to 2-mm arteriovenous malformation was also seen in the gastric fundus and treated with bipolar cauterization. Lastly, a red spot with what appeared to be a possible fibrin clot was seen in the proximal gastric fundus and again treated with bipolar cauterization with good hemostasis achieved on all 3 sites. ASSESSMENT AND PLAN: The patient is a 73-year-old male with past medical history of coronary artery disease, diabetes, hyperlipidemia, hypertension, osteoarthritis, chronic obstructive pulmonary disease, gout, chronic kidney disease, chronic anemia, congestive heart failure, and cerebrovascular accident on full anticoagulation with Coumadin prior to admission, presenting with hematemesis and significant anemia secondary to a supratherapeutic INR. Hematemesis: The patient initially presented with acute onset of black-colored emesis as well as melenic-type stools consistent with a GI bleed. On admission to [facility], he was noted to have a profoundly high INR of approximately 7. After resuscitative efforts, he underwent upper endoscopy, which showed the presence of 3 sites of potential bleeding that were all treated with bipolar cauterization with good hemostasis achieved. Since that time, he has not had any further episodes of hematemesis nor melena and while his H and H are currently downtrending, it has stabilized somewhat compared to yesterday. Recommendations: 1. We would continue to trend his H and H and transfuse as necessary to maintain an H and H of 7/. 2. Continue to monitor clinically for signs of active GI bleeding. 3. We would continue PPI 40 mg b.i.d. 4. Could potentially advance the patient's diet to full liquid diet today. Non-ST elevation myocardial infarction: The patient is presenting with a prior history of coronary artery disease as well as a stroke for which the patient had been on chronic anticoagulation with Coumadin. However, given his supratherapeutic INR at admission and induce gastrointestinal bleed from sources within the stomach that have now been successfully treated. However, during the course of his acute blood loss, he was noted to have significantly elevated troponins consistent with a non-ST elevation myocardial infarction. He has currently been resuscitated with blood products, which should decrease any sort of demand ischemia on the heart, but given his troponins were greater than 45, it is indicative of underlying cardiac disease. With his recent history of gastrointestinal bleeding, it makes it difficult to fully anticoagulate this patient in the postoperative setting for his non-ST elevation myocardial infarction with no current guidelines regarding the timing of restarting anticoagulation in light of the current clinical situation for this patient. Recommendations: 1. We would continue to trend his troponins for resolution after stopping bleeding and replaced with blood products in light of process of possible demand ischemia. 2. We will consider Cardiology consultation for further recommendations. 3. I would like to hold his anticoagulation for at least another 24 hours, but if deemed appropriate by Cardiology, could potentially restart as early as today given although being with a higher risk of rebleeding from the cauterized sources. We will continue to follow. Please call with any questions. Job ID: [id number]
[2018-11-27] MEDS ORDERED: Magnesium Sulfate 1 GM/2 ML VIAL IM SCH (11:15)
--- NOTE | 2018-11-27 11:48 | PRG ---
DATE OF SERVICE: 11/27/2018 SUBJECTIVE: A 73-year-old gentleman, being seen for acute kidney injury. The patient denied any nausea, vomiting, chest pain. OBJECTIVE: See above. Awake, alert, in no acute distress. VITAL SIGNS: Afebrile, pulse 77, breathing 16, blood pressure 110/55. GENERAL APPEARANCE AND MENTAL STATUS: Fair. HEAD/NECK: Normocephalic. Atraumatic. EYES: EOMI. No deformity. EARS: Clear. No ulcers. NOSE: Intact. No lesions. MOUTH: Clear. No discharge. THROAT: Clear. No exudate. LUNGS: Clear. No crackles. CARDIAC: S1, S2. No rub. ABDOMEN: Benign. Bowel sounds positive. GENITALIA/RECTUM: Albert absent. BACK/EXTREMITIES: Edema 0+. NEUROLOGICAL: Alert and motor intact. SKIN: LYMPHATICS: LABORATORY DATA: Hemoglobin 7.2. Potassium 2.9 and sodium 146. ASSESSMENT AND PLAN: 1. Acute kidney injury, chronic kidney disease, most likely because of acute tubular necrosis. Continue hydration. 2. Hypokalemia, recommend 20 mEq of potassium replacement. 3. Hypernatremia, continue free water. 4. Anemia, stable. Medication based on GFR appropriate. No indication for dialysis, Job ID: [id number]
--- NOTE | 2018-11-27 11:53 | PDOC.CPN ---
- Subjective Date: 11/27/18 Time: 12:04 Interval history: The pt seen and examined. No overnight events. No cardiac complaints. - Objective Allergies/Adverse Reactions: Allergies Allergy/AdvReac Type Severity Reaction Status Date / Time Iodine and Iodide Containing Allergy Verified 11/26/18 05:04 Produc Visit Medications: Current Medications Acetaminophen (Tylenol) 650 mg PO Q4H PRN PRN Reason: Headache/Fever/Mild Pain (1-3) Last Admin: 11/26/18 02:33 Dose: 650 mg Albuterol/Ipratropium (Duoneb) 3 ml NEB TID-RT [facility] Allopurinol (Zyloprim) 100 mg PO DAILY [facility] Last Admin: 11/27/18 10:10 Dose: 100 mg Atorvastatin Calcium (Lipitor) 20 mg PO DAILY [facility] Last Admin: 11/27/18 10:11 Dose: 20 mg Calcitriol (Rocaltrol) 0.25 mcg PO DAILY FERNANDO Calcitriol (Rocaltrol) 0.25 mcg PO ONE [facility] Calcium Carbonate (Oscal-500) 500 mg PO TID-WM [facility] Last Admin: 11/27/18 10:10 Dose: 500 mg Ergocalciferol (Drisdol) 1.25 mg PO Q7DAYS [facility] Last Admin: 11/27/18 10:11 Dose: 1.25 mg Ferrous Sulfate (Feosol) 325 mg PO QAM-WM [facility] Last Admin: 11/27/18 10:10 Dose: 325 mg Promethazine HCl 12.5 mg/ (Sodium Chloride) 50.5 mls @ 202 mls/hr IVPB Q6H PRN PRN Reason: Nausea Last Admin: 11/25/18 23:32 Dose: 50.5 mls Sodium Chloride (1/2 Normal Saline) 1,000 mls @ 50 mls/hr IV .Q20H [facility] Magnesium Sulfate (Magnesium Sulfate) 1 gm IM ONE [facility] Ondansetron HCl (Zofran) 4 mg IVP Q6H PRN PRN Reason: Nausea/Vomiting Last Admin: 11/26/18 06:14 Dose: 4 mg Pantoprazole Sodium (Protonix) 40 mg IVP Q12HR [facility] Last Admin: 11/27/18 10:15 Dose: 40 mg Sodium Chloride (Flush - Normal Saline) 10 ml IVF Q12HR [facility] Last Admin: 11/27/18 10:11 Dose: Not Given Sodium Chloride (Flush - Normal Saline) 10 ml IVF PRN PRN PRN Reason: Saline Flush Terazosin HCl (Hytrin) 10 mg PO DAILY FERNANDO Last Admin: 11/27/18 10:11 Dose: 10 mg Tramadol HCl (Ultram) 50 mg PO Q6H PRN PRN Reason: Moderate Pain (4-6) Last Admin: 11/26/18 03:48 Dose: 50 mg Vital Signs & Weight: Vital Signs Temp Pulse Resp 11/27/18 11:15 99.0 F 11/27/18 07:23 97.7 F 11/27/18 07:08 97 18 11/27/18 04:00 98.0 F 11/27/18 00:00 98.5 F Weight 163 lb 12.855 oz - Physical Exam General: alert & oriented x3 Cardiac: regular rate and rhythm, S1/S2 Lungs: clear to auscultation, decreased breath sounds Skin: clear Musculoskeletal: decreased range of motion - Labs Result Diagrams: 11/28/18 08:29 11/28/18 03:55 Troponin/CKMB CK-MB (CK-2) 152.9 ng/mL (0-6.6) H* 11/26/18 14:43 Troponin I 72.754 ng/mL (< 0.028) H* 11/26/18 14:43 - Telemetry Sinus rhythms and dysrhythmias: sinus rhythm - Assessment/Plan Assessment/Plan: 1. Elevated Trop 2/2 severe anemia - asymptomatic; 2. Severe Anemia 2/2 upper GI hemorrhage with Coumadin - Hgb today was 7.2 which was 8.3 yesterday; 3. Afib with RVR - remains in SR; will start Coreg 3.125mg BID from today; 4. Chronic Systolic HF with EF 30-35% - will start Coreg 3.125mg BID for hx of CHF and Afib; Not on ROZINA/ARB due to hx of CKD 5. CAD - stable; will start coreg; on Lipitor, Not on ASA for now due to GI bleed 6. CKD - managed by administration dean 7. HTN - stable 8. HLD - On statin 9. DM type 2 - managed by PCP 10. COPD - stable with RA 11. hx of CVA x 6 MAR reviewed * Echo in 11/2018 with EF 30-35%, mod dilated LA, small pericardial effusion, mild-mod MR, trace AR, mild TR, and mild with Valve area 1.6 sq cm Pt. seen and eval. by me. I reviewed the records from [facility]. He is s/p CVA in 2018 and this is why the loop recorder was inserted to eval. possible arrhythmias as a cause of the CVA. Interrogation of the device indicated 1 episode of atrial fibrillation on 11/24 for 2 min. Per the records he has chronic afib. I agree with the A/P by the [employer]. Review of his troponins on this admission indicates an MT has occurred this admit. He is not a candidate for cardiac cath at this time. The EF is decreased to 30-35% and he is a candidate for a life- vest on d/c. If the EF does not improve he may become a candidate for an AICD.
[2018-11-27] MEDS: Sodium Chloride 0.9% 1,000 ML IV SCH (12:23)
[2018-11-27] MEDS: Sodium Chloride 0.45% 1,000 ML IV SCH (12:31)
[2018-11-27] MEDS ORDERED: Calcitriol 0.25 MCG CAP PO SCH (13:00)
[2018-11-27] MEDS: Carvedilol 3.125 MG TAB PO SCH (17:14)
[2018-11-28 04:38] LABS: Anion Gap 11 mmol/L (10-20); BUN (Urea Nitrogen) 73 mg/dL (8.4-25.7); Calc. Creatinine Clearance 22 mL/min (70-130); Carbon Dioxide 20 mmol/L (23-31); Chloride 114 mmol/L (98-107); Estimated GFR-MDRD 20; Glucose 111 mg/dL (83-110); Potassium 3.4 mmol/L (3.5-5.1); Sodium 142 mmol/L (136-145)
[2018-11-28 04:52] LABS: Calcium 5.9 mg/dL (7.8-10.44)
--- NOTE | 2018-11-28 08:42 | PDOC.HOSPP ---
- Subjective Encounter Date: 11/28/18 Encounter Time: 08:41 Subjective: no bleeding, no complaints - Objective Vital Signs & Weight: Vital Signs (12 hours) Temp Pulse Resp Pulse Ox 11/28/18 07:54 98 11/28/18 07:08 108 H 24 H 98 11/28/18 04:50 98.5 F Weight Weight 170 lb 6.677 oz Most Recent Monitor Data Heart Rate from ECG 104 NIBP 155/80 NIBP BP-Mean 105 Respiration from ECG 26 SpO2 94 I&O: 11/27/18 11/28/18 11/29/18 06:59 06:59 06:59 Intake Total 2550 2495 Output Total 1075 1375 Balance 1475 1120 Result Diagrams: 11/27/18 05:41 11/28/18 03:55 Hospitalist ROS - Medication Medications: Active Medications Generic Name Dose Route Start Last Admin Trade Name Freq PRN Reason Stop Dose Admin Acetaminophen 650 mg 11/25/18 08:13 11/26/18 02:33 Tylenol PO 650 mg Q4H PRN Administration Headache/Fever/Mild Pain (1-3) Albuterol/Ipratropium 3 ml 11/27/18 12:30 11/28/18 07:08 Duoneb NEB 3 ml TID-RT FERNANDO Administration Allopurinol 100 mg 11/27/18 09:00 11/27/18 10:10 Zyloprim PO 100 mg DAILY FERNANDO Administration Atorvastatin Calcium 20 mg 11/27/18 09:00 11/27/18 10:11 Lipitor PO 20 mg DAILY FERNANDO Administration Calcium Carbonate 500 mg 11/26/18 17:00 11/27/18 17:14 Oscal-500 PO 500 mg TID-WM [facility]ERNA[facility]O Administration Carvedilol 3.125 mg 11/27/18 17:00 11/27/18 17:14 Coreg PO 3.125 mg BID-WM [facility] Administration Ergocalciferol 1.25 mg 11/27/18 09:00 11/27/18 10:11 Drisdol PO 1.25 mg Q7DAYS [facility] Administration Ferrous Sulfate 325 mg 11/27/18 08:00 11/27/18 10:10 Feosol PO 325 mg QAM-WM [facility] Administration Promethazine HCl 12.5 mg/ 50.5 mls @ 202 mls/hr 11/25/18 14:52 11/25/18 23:32 Sodium Chloride IVPB 50.5 mls Q6H PRN Administration Nausea Sodium Chloride 1,000 mls @ 50 mls/hr 11/27/18 11:15 11/27/18 12:31 1/2 Normal Saline IV 1,000 mls .Q20H [facility] Administration Ondansetron HCl 4 mg 11/25/18 08:13 11/26/18 06:14 Zofran IVP 4 mg Q6H PRN Administration Nausea/Vomiting Pantoprazole Sodium 40 mg 11/26/18 21:00 11/27/18 20:50 Protonix IVP 40 mg Q12HR [facility]O Administration Sodium Chloride 10 ml 11/26/18 09:00 11/27/18 20:51 Flush - Normal Saline IVF 10 ml Q12HR FERNA[facility]O Administration Terazosin HCl 10 mg 11/27/18 09:00 11/27/18 10:11 Hytrin PO 10 mg DAILY [facility]NA[facility] Administration Tramadol HCl 50 mg 11/26/18 03:33 11/26/18 03:48 Ultram PO 50 mg Q6H PRN Administration Moderate Pain (4-6) - Exam General Appearance: awake alert Neck: no JVD Heart: RRR, no murmur Respiratory: CTAB Gastrointestinal: soft, normal bowel sounds Extremities: 1+ LE edema Hosp A/P (1) Anemia due to blood loss, acute Code(s): D62 - ACUTE POSTHEMORRHAGIC ANEMIA Status: Acute (2) Upper gastrointestinal hemorrhage Code(s): K92.2 - GASTROINTESTINAL HEMORRHAGE, UNSPECIFIED Status: Acute (3) Warfarin-induced coagulopathy Code(s): D68.32 - HEMORRHAGIC DISORD D/T EXTRINSIC CIRCULATING ANTICOAGULANTS; T45.515A - ADVERSE EFFECT OF ANTICOAGULANTS, INITIAL ENCOUNTER Status: Acute (4) Atrial fibrillation with controlled ventricular response Code(s): I48.91 - UNSPECIFIED ATRIAL FIBRILLATION Status: Acute (5) CAD (coronary artery disease) Code(s): I25.10 - ATHSCL HEART DISEASE OF [place] CORONARY ARTERY W/O ANG PCTRS Status: Acute Qualifiers: Coronary Disease-Associated Artery/Lesion type: [place] artery [place] vs. transplanted heart: [place] heart Associated angina: without angina Qualified Code(s): I25.10 - Atherosclerotic heart disease of [place] coronary artery without angina pectoris (6) DM type 2 causing CKD stage 4 Code(s): E11.22 - TYPE 2 DIABETES MELLITUS W DIABETIC CHRONIC KIDNEY DISEASE; N18.4 - CHRONIC KIDNEY DISEASE, STAGE 4 (SEVERE) Status: Acute Qualifiers: Diabetes mellitus mcc insulin use: without rn long term care use Qualified Code(s): E11.22 - Type 2 diabetes mellitus with diabetic chronic kidney disease ; N18.4 - Chronic kidney disease, stage 4 (severe) (7) HTN (hypertension) Code(s): I10 - ESSENTIAL (PRIMARY) HYPERTENSION Status: Chronic Qualifiers: Hypertension type: essential hypertension Qualified Code(s): I10 - Essential (primary) hypertension - Plan cont serial H&H, transfuse for Hg< 7 cont iv PPI hold anticoag selected home meds
[2018-11-28] MEDS: Sodium Chloride 0.45% 1,000 ML IV SCH (08:50)
[2018-11-28] MEDS: Terazosin HCl 5 MG CAP PO SCH (08:51)
[2018-11-28] MEDS: Atorvastatin Calcium 20 MG TAB PO SCH (08:51)
[2018-11-28] MEDS: Carvedilol 3.125 MG TAB PO SCH (08:51)
[2018-11-28] MEDS: Allopurinol 100 MG TAB PO SCH (08:52)
[2018-11-28] MEDS: Ferrous Sulfate 325 MG TAB PO SCH (08:52)
[2018-11-28] MEDS: Calcium Carbonate 500 MG TAB PO SCH ×2 (08:52→11:48)
[2018-11-28] MEDS: Pantoprazole 40 MG VIAL IVP SCH ×2 (08:52→22:46)
[2018-11-28] MEDS ORDERED: Calcitriol 0.25 MCG CAP PO SCH ×2 (09:00→15:30)
[2018-11-28 09:06] LABS: Hemoglobin 7.7 g/dL (14.0-18.0)
--- NOTE | 2018-11-28 09:31 | PDOC.EVN ---
Event Note - Event Note Event Note: discussed with Dr Brown. suspects AMI due to anemia, suggests transfusion to Hg 9 , agree
[2018-11-28] MEDS ORDERED: Potassium Chloride 20 MEQ TAB PO SCH (10:00)
--- NOTE | 2018-11-28 10:12 | PRG ---
DATE OF SERVICE: 11/28/2018 SUBJECTIVE: This morning, he is still having difficulty breathing he tells me. OBJECTIVE: VITAL SIGNS: His saturations are 90% on room air, pulse , respiratory rate 24, blood pressure 150/80. CHEST: No wheezing, crackles. CARDIAC: Normal S1, S2. No gallops. ABDOMEN: No mass. LABORATORY DATA: Creatinine is 3, BUN is 70. H and H 7 and 22. ASSESSMENT AND PLAN: Gastrointestinal bleed, azotemia, elevated troponin, chronic obstructive pulmonary disease. Pulmonary flores, continue neb treatments. Supportive care. Disposition as per GI. Job ID: [id number]
--- NOTE | 2018-11-28 10:14 | PDOC.CPN ---
- Subjective Date: 11/28/18 Time: 10:20 Interval history: The pt seen and examined. No overnight events. No cardiac complaints. - Objective Allergies/Adverse Reactions: Allergies Allergy/AdvReac Type Severity Reaction Status Date / Time Iodine and Iodide Containing Allergy Verified 11/26/18 05:04 Produc Visit Medications: Current Medications Acetaminophen (Tylenol) 650 mg PO Q4H PRN PRN Reason: Headache/Fever/Mild Pain (1-3) Last Admin: 11/26/18 02:33 Dose: 650 mg Albuterol/Ipratropium (Duoneb) 3 ml NEB TID-RT [facility] Last Admin: 11/28/18 07:08 Dose: 3 ml Allopurinol (Zyloprim) 100 mg PO DAILY [facility] Last Admin: 11/28/18 08:52 Dose: 100 mg Atorvastatin Calcium (Lipitor) 20 mg PO DAILY [facility] Last Admin: 11/28/18 08:51 Dose: 20 mg Calcitriol (Rocaltrol) 0.25 mcg PO DAILY [facility] Last Admin: 11/28/18 08:52 Dose: 0.25 mcg Calcium Carbonate (Oscal-500) 500 mg PO TID-[facility] Last Admin: 11/28/18 08:52 Dose: 500 mg Carvedilol (Coreg) 3.125 mg PO BID-[facility] Last Admin: 11/28/18 08:51 Dose: 3.125 mg Ergocalciferol (Drisdol) 1.25 mg PO Q7DAYS [facility] Last Admin: 11/27/18 10:11 Dose: 1.25 mg Ferrous Sulfate (Feosol) 325 mg PO QAM-WM [facility] Last Admin: 11/28/18 08:52 Dose: 325 mg Promethazine HCl 12.5 mg/ (Sodium Chloride) 50.5 mls @ 202 mls/hr IVPB Q6H PRN PRN Reason: Nausea Last Admin: 11/25/18 23:32 Dose: 50.5 mls Sodium Chloride (1/2 Normal Saline) 1,000 mls @ 50 mls/hr IV .Q20H [facility] Last Admin: 11/28/18 08:50 Dose: 1,000 mls Ondansetron HCl (Zofran) 4 mg IVP Q6H PRN PRN Reason: Nausea/Vomiting Last Admin: 11/26/18 06:14 Dose: 4 mg Pantoprazole Sodium (Protonix) 40 mg IVP Q12HR [facility] Last Admin: 11/28/18 08:52 Dose: 40 mg Potassium Chloride (K-Dur) 40 meq PO NOW [facility] Stop: 11/28/18 12:00 Sodium Chloride (Flush - Normal Saline) 10 ml IVF Q12HR [facility] Last Admin: 11/28/18 08:52 Dose: Not Given Sodium Chloride (Flush - Normal Saline) 10 ml IVF PRN PRN PRN Reason: Saline Flush Terazosin HCl (Hytrin) 10 mg PO DAILY [facility] Last Admin: 11/28/18 08:51 Dose: 10 mg Tramadol HCl (Ultram) 50 mg PO Q6H PRN PRN Reason: Moderate Pain (4-6) Last Admin: 11/26/18 03:48 Dose: 50 mg Vital Signs & Weight: Vital Signs Temp Pulse Resp Pulse Ox 11/28/18 07:54 98 11/28/18 07:08 108 H 24 H 98 11/28/18 04:50 98.5 F Weight 170 lb 6.677 oz - Physical Exam General: alert & oriented x3 Cardiac: regular rate and rhythm, S1/S2 Lungs: decreased breath sounds Skin: clear Musculoskeletal: decreased range of motion - Labs Result Diagrams: 11/28/18 08:29 11/28/18 03:55 Troponin/CKMB CK-MB (CK-2) 152.9 ng/mL (0-6.6) H* 11/26/18 14:43 Troponin I 44.660 ng/mL (< 0.028) H* 11/27/18 17:21 - Telemetry Sinus rhythms and dysrhythmias: sinus tachycardia - Assessment/Plan Assessment/Plan: 1. Elevated Trop 2/2 severe anemia or possible AZ- asymptomatic; He is not a candidate for cardiac cath at this time. 2. Severe Anemia 2/2 upper GI hemorrhage with Coumadin - Hgb today was 7.7 from 7.2 yesterday; 3. Afib with RVR - remains in SR; LINQ interrogation showed 1 episode of Afib for 2 mins on 11/24/2018. will increase Coreg from 3.125mg to 6.25mg BID from today; Not candidate for OAC due to hx of GI bleed x2 in past 4. Chronic Systolic HF with EF 30-35% - On Coreg; Not on ROZINA/ARB due to hx of CKD 5. CAD - stable; on Coreg, Lipitor, Not on ASA for now due to GI bleed 6. CKD - managed by informal waiter/waitress 7. HTN - stable 8. HLD - On statin 9. DM type 2 - managed by PCP 10. COPD - stable with RA 11. hx of CVA x 6; He is s/p CVA in 07/2018 and this is why the loop recorder was inserted to eval. possible arrhythmias as a cause of the CVA. MAR reviewed * Echo in 11/2018 with EF 30-35%, mod dilated LA, small pericardial effusion, mild-mod MR, trace AR, mild TR, and mild with Valve area 1.6 sq cm * The pt is a candidate for a life-vest on d/c. If the EF does not improve he may become a candidate for an AICD. Pt. seen and eval. by me. I agree with the A/P by the STOCK PATCHER. He denies specific chest pain but says that he hurts all over due to arthritis. With the significant increase in the troponin -I , it appears that he suffered an AZ due to the demand ischemia associated with the anemia. Not a candidate for cath or intervention at this time. Will review the records for any old documentation of the EF. Would transfuse pt to a HGB. of around 10 to decrease further ischemia.
[2018-11-28] MEDS ORDERED: Carvedilol 3.125 MG TAB PO SCH (11:00)
[2018-11-28 11:10] LABS: Calcium 5.8 mg/dL (7.8-10.44); Magnesium 1.5 mg/dL (1.6-2.6); Phosphorus 2.8 mg/dL (2.3-4.7)
--- NOTE | 2018-11-28 15:55 | PRG ---
DATE OF SERVICE: 11/28/2018 SUBJECTIVE: This is a 73-year-old gentleman, being seen for the acute kidney injury with CKD and hypercalcemia. The patient denied nausea, vomiting, or chest pain. OBJECTIVE: See above. The patient is awake and alert, in no acute distress. VITAL SIGNS: Pulse 98, breathing 16, blood pressure 158/83. GENERAL APPEARANCE AND MENTAL STATUS: Fair. HEAD/NECK: Normocephalic. Atraumatic. EYES: EOMI. No deformity. EARS: Clear. No ulcers. NOSE: Intact. No lesions. MOUTH: Clear. No discharge. THROAT: Clear. No exudate. LUNGS: Clear. No crackles. CARDIAC: S1, S2. No rub. ABDOMEN: Benign. Bowel sounds positive. GENITALIA/RECTUM: Albert absent. BACK/EXTREMITIES: Edema 0+. NEUROLOGICAL: Alert and motor intact. SKIN: LYMPHATICS: LABORATORY DATA: Labs show hemoglobin 7.7. Potassium 3.4, creatinine 3.1. ASSESSMENT AND PLAN: 1. Hypocalcemia most likely because of renal failure and low vitamin D. We will increase the dose of calcitriol to 0.5 mcg daily. Continue Drisdol. Increase calcium as well to 1500 mg daily. 2. Anemia, stable. 3. Hypertension, stable. No indication for dialysis. Job ID: [id number]
[2018-11-28] MEDS: Acetaminophen 325 MG TAB PO PRN (16:44)
[2018-11-28] MEDS ORDERED: Carvedilol 6.25 MG TAB PO SCH (17:00)
--- NOTE | 2018-11-28 21:46 | PRG ---
DATE OF SERVICE: 11/28/2018 REASON FOR CONSULTATION: Hematemesis, gastric ulcer, anemia. SUBJECTIVE: Today, the patient stated he had a bit of a "rough" day secondary to increased anxiety he is experiencing while here at the hospital as well as some social issues that he is having with the guards. Otherwise he has not had any further episodes of hematemesis or melena and from a GI standpoint is feeling much better. Currently, he denies any nausea, vomiting, fevers, chills, abdominal pain, hematemesis, melena, or hematochezia. OBJECTIVE: VITAL SIGNS: Temperature 99.3, pulse 91, blood pressure 150/84, respiratory rate 22 saturating 96% on room air. GENERAL: The patient was lying in bed, in no acute distress. Alert and oriented x4 CARDIOVASCULAR: Regular rate and rhythm. RESPIRATORY: Clear to auscultation bilaterally. ABDOMEN: Normoactive bowel sounds. Soft, nontender, nondistended. EXTREMITIES: No cyanosis, clubbing, or edema. LABORATORY DATA: H and H with hemoglobin of 7.7, hematocrit 22.6. Chemistry with a sodium of 142, potassium 3.4, chloride 114, CO2 20, BUN 73, creatinine 3.1, glucose 111, calcium 5.8, magnesium 1.5, troponin 44.6. IMAGING DATA: No current GI imaging is available for review. ASSESSMENT AND PLAN: The patient is a 73-year-old male with past medical history of coronary artery disease, diabetes, hyperlipidemia, hypertension, osteoarthritis, chronic obstructive pulmonary disease, gout, chronic kidney disease, chronic anemia, congestive heart failure with an ejection fraction of 30-35% and cerebrovascular accident on full anticoagulation with Coumadin prior to admission, presenting with hematemesis and significant anemia secondary to supratherapeutic INR. Hematemesis. The patient initially presented with acute onset of black colored emesis as well as melenic type stools consistent with an upper gastrointestinal bleed. He was also noted to have a profoundly elevated INR of approximately 7 on admission and after resuscitative efforts underwent upper endoscopy which showed the presence of three sites of potential bleeding that were all treated with bipolar cauterization. Since intervention with the upper endoscopy, he has not had any further episodes of hematemesis or melena, but he has had a mild decrease in his hemoglobin and hematocrit with a downtrend concerning for possible oozing from these sites. Anticoagulation has not been yet restarted, but his troponins are also down trending lending itself towards demand ischemia creating his non-ST elevation myocardial infarction. RECOMMENDATIONS: 1. We would continue to trend his H and H and transfuse as necessary to maintain an H and H of 10/30 per Cardiology recommendations. 2. We would continue to monitor clinically for signs of active GI bleeding. 3. We would continue PPI 40 mg b.i.d. 4. Pain control per primary team. 5. Advance diet as tolerated. 6. Given his significant cardiac history and in light of his recent upper GI bleed if anticoagulation is necessary for his coronary artery disease, one could restart him on his anticoagulation, but would recommend short-acting anticoagulants that could be easily reversed if deemed appropriate by Cardiology service. We will continue to follow, but we will follow peripherally at this time given no further evidence of active GI bleeding. If his H and H continues to decrease, we may consider a tagged red cell scan for further evaluation and/or repeat upper endoscopy. Please call with any additional questions. Job ID: [id number]
[2018-11-28] MEDS: diphenhydrAMINE 25 MG CAP PO PRN (22:37)
[2018-11-28] MEDS: Calcium Carbonate 500 MG ChewTAB PO SCH (22:46)
[2018-11-29 04:26] LABS: #Eosinphils 0.6 thou/uL (0.0-0.7); #Lymphocytes 0.5 thou/uL (1.20-3.40); #Monocytes 0.4 thou/uL (0.11-0.59); #Neutrophils 6.4 thou/uL (1.40-6.50); %Basophils 0.2 % (0.0-1.0); %Eosinophils 7.7 % (0.0-10.0); %Lymphocytes 6.2 % (21.0-51.0); %Monocytes 5.3 % (0.0-10.0); %Neutrophils 80.7 % (42.0-75.0); Mean Corpuscular HGB CONC 33.6 g/dL (32.0-36.0); Mean Corpuscular Hemoglobin 30.9 pg (27.0-31.0); Mean Corpuscular Volume 91.9 fL (78.0-98.0); Mean Platelet Volume 7.4 fL (7.4-10.4); Platelet Count 201 thou/uL (130-400); RBC Distribution Width 15.8 % (11.5-14.5); Red Blood Cell (RBC) Count 2.89 mill/uL (4.70-6.10); White Blood Cell (WBC) Count 7.9 thou/uL (4.8-10.8)
[2018-11-29 04:49] LABS: Anion Gap 15 mmol/L (10-20); BUN (Urea Nitrogen) 60 mg/dL (8.4-25.7); Calc. Creatinine Clearance 23 mL/min (70-130); Calcium 6.4 mg/dL (7.8-10.44); Carbon Dioxide 18 mmol/L (23-31); Chloride 113 mmol/L (98-107); Estimated GFR-MDRD 21; Glucose 110 mg/dL (83-110); Magnesium 1.6 mg/dL (1.6-2.6); Sodium 142 mmol/L (136-145)
[2018-11-29] MEDS ORDERED: Furosemide 40 MG/4 ML VIAL ONE (05:31)
[2018-11-29] MEDS ORDERED: Furosemide 40 MG/4 ML VIAL SLOW IVP SCH ×2 (05:45→10:15)
--- NOTE | 2018-11-29 07:40 | RAD ---
CHEST 1 VIEW: INDICATION: Shortness of breath. COMPARISON: Prior exam dated 11/26/2018. FINDINGS: There is persistent moderate cardiomegaly. There is worsening pulmonary vascular congestion and julia hilar edema. There are small bilateral pleural effusions. Post CABG change is stable. Osseous stru ctures are similar appearing. IMPRESSION: Worsening pulmonary vascular congestion and perihilar interstitial prominence suspicious for edema. There are worsening bilateral pleural effusions. Recommend correlation for worsening congestive hear t failure. POS: BH
[2018-11-29] MEDS: Sodium Chloride 0.45% 1,000 ML IV SCH (08:41)
[2018-11-29] MEDS: Calcium Carbonate 500 MG ChewTAB PO SCH ×3 (08:42→20:21)
[2018-11-29] MEDS: Allopurinol 100 MG TAB PO SCH (08:42)
[2018-11-29] MEDS: Atorvastatin Calcium 20 MG TAB PO SCH (08:43)
[2018-11-29] MEDS: Terazosin HCl 5 MG CAP PO SCH (08:43)
[2018-11-29] MEDS: Calcitriol 0.25 MCG CAP PO SCH (08:43)
[2018-11-29] MEDS: Carvedilol 6.25 MG TAB PO SCH ×2 (08:43→16:15)
[2018-11-29] MEDS: Pantoprazole 40 MG VIAL IVP SCH ×2 (08:44→20:21)
[2018-11-29] MEDS: Ferrous Sulfate 325 MG TAB PO SCH (08:44)
[2018-11-29] MEDS ORDERED: Calcitriol 0.25 MCG CAP PO SCH (09:00)
--- NOTE | 2018-11-29 09:19 | PDOC.CPN ---
- Subjective Date: 11/29/18 Time: 09:19 Interval history: The pt seen and examined. No overnight events. No cardiac complaints. - Objective Allergies/Adverse Reactions: Allergies Allergy/AdvReac Type Severity Reaction Status Date / Time Iodine and Iodide Containing Allergy Verified 11/26/18 05:04 Produc Visit Medications: Current Medications Acetaminophen (Tylenol) 650 mg PO Q4H PRN PRN Reason: Headache/Fever/Mild Pain (1-3) Last Admin: 11/28/18 16:44 Dose: 650 mg Albuterol/Ipratropium (Duoneb) 3 ml NEB TID-RT [facility] Last Admin: 11/29/18 07:28 Dose: 3 ml Allopurinol (Zyloprim) 100 mg PO DAILY [facility] Last Admin: 11/29/18 08:42 Dose: 100 mg Atorvastatin Calcium (Lipitor) 20 mg PO DAILY [facility] Last Admin: 11/29/18 08:43 Dose: 20 mg Calcitriol (Rocaltrol) 0.5 mcg PO DAILY [facility] Last Admin: 11/29/18 08:43 Dose: 0.5 mcg Calcium Carbonate (Tums) 1,500 mg PO TID [facility] Last Admin: 11/29/18 08:42 Dose: 1,500 mg Carvedilol (Coreg) 12.5 mg PO BID-WM [facility] Last Admin: 11/29/18 08:43 Dose: 12.5 mg Diphenhydramine HCl (Benadryl) 25 mg PO Q6H PRN PRN Reason: Itching & Insomnia Last Admin: 11/28/18 22:37 Dose: 25 mg Ergocalciferol (Drisdol) 1.25 mg PO Q7DAYS [facility] Last Admin: 11/27/18 10:11 Dose: 1.25 mg Ferrous Sulfate (Feosol) 325 mg PO QAM-WM [facility] Last Admin: 11/29/18 08:44 Dose: 325 mg Promethazine HCl 12.5 mg/ (Sodium Chloride) 50.5 mls @ 202 mls/hr IVPB Q6H PRN PRN Reason: Nausea Last Admin: 11/25/18 23:32 Dose: 50.5 mls Sodium Chloride (1/2 Normal Saline) 1,000 mls @ 50 mls/hr IV .Q20H [facility] Last Admin: 11/29/18 08:41 Dose: 1,000 mls Ondansetron HCl (Zofran) 4 mg IVP Q6H PRN PRN Reason: Nausea/Vomiting Last Admin: 11/26/18 06:14 Dose: 4 mg Pantoprazole Sodium (Protonix) 40 mg IVP Q12HR [facility] Last Admin: 11/29/18 08:44 Dose: 40 mg Sodium Chloride (Flush - Normal Saline) 10 ml IVF Q12HR [facility] Last Admin: 11/29/18 08:44 Dose: Not Given Sodium Chloride (Flush - Normal Saline) 10 ml IVF PRN PRN PRN Reason: Saline Flush Terazosin HCl (Hytrin) 10 mg PO DAILY [facility] Last Admin: 11/29/18 08:43 Dose: 10 mg Tramadol HCl (Ultram) 50 mg PO Q6H PRN PRN Reason: Moderate Pain (4-6) Last Admin: 11/26/18 03:48 Dose: 50 mg Vital Signs & Weight: Vital Signs Temp Pulse Resp BP Pulse Ox 11/29/18 08:43 137/79 11/29/18 07:32 98.0 F 96 11/29/18 07:30 100 11/29/18 07:28 102 H 20 100 11/29/18 04:00 98.0 F 11/29/18 00:00 97.9 F Weight 170 lb 6.677 oz - Physical Exam Cardiac: regular rate and rhythm, S1/S2 Lungs: decreased breath sounds Skin: clear Musculoskeletal: decreased range of motion - Labs Result Diagrams: 11/29/18 04:20 11/29/18 04:20 Troponin/CKMB CK-MB (CK-2) 152.9 ng/mL (0-6.6) H* 11/26/18 14:43 Troponin I 44.660 ng/mL (< 0.028) H* 11/27/18 17:21 - Telemetry Sinus rhythms and dysrhythmias: sinus tachycardia - Assessment/Plan Assessment/Plan: 1. Elevated Trop 2/2 severe anemia or possible [place]- asymptomatic; He is not a candidate for cardiac cath at this time due to anemia and elevated Cr level. 2. Severe Anemia 2/2 upper GI hemorrhage with Coumadin - Hgb today was 9.2 from 7.7 yesterday; 3. Afib with RVR - remains in SR; LINQ interrogation showed 1 episode of Afib for 2 mins on 11/24/2018. will increase Coreg from 6.25mg to 12.5mg BID from today; Not candidate for OAC due to hx of GI bleed x2 in past 4. Chronic Systolic HF with EF 30-35% - On Coreg; Not on ROZINA/ARB due to hx of CKD 5. CAD - stable; on Coreg, Lipitor, Not on ASA for now due to GI bleed 6. CKD - managed by household personal assistant 7. HTN - stable 8. HLD - On statin 9. DM type 2 - managed by PCP 10. COPD - stable with RA 11. hx of CVA x 6; He is s/p CVA in 07/2018 and this is why the loop recorder was inserted to eval. possible arrhythmias as a cause of the CVA. MAR reviewed * Echo in 11/2018 with EF 30-35%, mod dilated LA, small pericardial effusion, mild-mod MR, trace AR, mild TR, and mild with Valve area 1.6 sq cm * The pt is a candidate for a life-vest on d/c. If the EF does not improve he may become a candidate for an AICD. Pt. seen and eval. by me. I agree with the A/P by the OVERHEAD CLEANER MAINTAINER. He is a little SOB May need to increase diuretics.Chest : coarse BS, RRR, no edema.
--- NOTE | 2018-11-29 10:21 | PRG ---
DATE OF SERVICE: 11/29/2018 SUBJECTIVE: This morning, he is awake, alert, and responsive. He is less short of breath. OBJECTIVE: VITAL SIGNS: Saturations are 95% on 2 L, blood pressure 126/70, respiratory rate 18, pulse 80. CHEST: Decreased breath sounds. No wheezing. CARDIAC: Normal S1, S2. No gallops. LABORATORY DATA: Creatinine is 2, BUN is 60, H and H are 10 and 26. ASSESSMENT: 1. Chronic obstructive pulmonary disease. 2. Gastrointestinal bleed. 3. Azotemia. PLAN: The patient appears to be in his baseline. We will continue neb treatments. Job ID: [id number]
--- NOTE | 2018-11-29 10:25 | PDOC.HOSPP ---
- Subjective Encounter Date: 11/29/18 Encounter Time: 10:24 Subjective: sob episode last pm, recieved lasix, now ok - Objective Vital Signs & Weight: Vital Signs (12 hours) Temp Pulse Resp BP Pulse Ox 11/29/18 08:43 137/79 11/29/18 07:32 98.0 F 96 11/29/18 07:30 100 11/29/18 07:28 102 H 20 100 11/29/18 04:00 98.0 F 11/29/18 00:00 97.9 F Weight Weight 170 lb 6.677 oz Most Recent Monitor Data Heart Rate from ECG 94 NIBP 126/72 NIBP BP-Mean 90 Respiration from ECG 21 SpO2 100 I&O: 11/28/18 11/29/18 11/30/18 06:59 06:59 06:59 Intake Total 2495 2163 240 Output Total 1375 1920 Balance 1120 243 240 Result Diagrams: 11/29/18 04:20 11/29/18 04:20 Hospitalist ROS - Medication Medications: Active Medications Generic Name Dose Route Start Last Admin Trade Name Freq PRN Reason Stop Dose Admin Acetaminophen 650 mg 11/25/18 08:13 11/28/18 16:44 Tylenol PO 650 mg Q4H PRN Administration Headache/Fever/Mild Pain (1-3) Albuterol/Ipratropium 3 ml 11/27/18 12:30 11/29/18 07:28 Duoneb NEB 3 ml TID-RT FERNANDO Administration Allopurinol 100 mg 11/27/18 09:00 11/29/18 08:42 Zyloprim PO 100 mg DAILY FERNANDO Administration Atorvastatin Calcium 20 mg 11/27/18 09:00 11/29/18 08:43 Lipitor PO 20 mg DAILY FERNANDO Administration Calcitriol 0.5 mcg 11/29/18 09:00 11/29/18 08:43 Rocaltrol PO 0.5 mcg DAILY FERNANDO Administration Calcium Carbonate 1,500 mg 11/28/18 21:00 11/29/18 08:42 Tums PO 1,500 mg TID FERNANDO Administration Carvedilol 12.5 mg 11/29/18 08:00 11/29/18 08:43 Coreg PO 12.5 mg BID-WM FERNANDO Administration Diphenhydramine HCl 25 mg 11/28/18 22:15 11/28/18 22:37 Benadryl PO 25 mg Q6H PRN Administration Itching & Insomnia Ergocalciferol 1.25 mg 11/27/18 09:00 11/27/18 10:11 Drisdol PO 1.25 mg Q7DAYS FERNANDO Administration Ferrous Sulfate 325 mg 11/27/18 08:00 11/29/18 08:44 Feosol PO 325 mg QAM-WM FERNANDO Administration Promethazine HCl 12.5 mg/ 50.5 mls @ 202 mls/hr 11/25/18 14:52 11/25/18 23:32 Sodium Chloride IVPB 50.5 mls Q6H PRN Administration Nausea Sodium Chloride 1,000 mls @ 50 mls/hr 11/27/18 11:15 11/29/18 08:41 1/2 Normal Saline IV 1,000 mls .Q20H FERNANDO Administration Ondansetron HCl 4 mg 11/25/18 08:13 11/26/18 06:14 Zofran IVP 4 mg Q6H PRN Administration Nausea/Vomiting Pantoprazole Sodium 40 mg 11/26/18 21:00 11/29/18 08:44 Protonix IVP 40 mg Q12HR FERNANDO Administration Sodium Chloride 10 ml 11/26/18 09:00 11/29/18 08:44 Flush - Normal Saline IVF Not Given Q12HR FERNANDO Terazosin HCl 10 mg 11/27/18 09:00 11/29/18 08:43 Hytrin PO 10 mg DAILY FERNANDO Administration Tramadol HCl 50 mg 11/26/18 03:33 11/26/18 03:48 Ultram PO 50 mg Q6H PRN Administration Moderate Pain (4-6) - Exam General Appearance: awake alert Neck: no JVD Heart: RRR, no murmur Respiratory - other findings: basilar rales, OW clear Gastrointestinal: soft, non-tender, normal bowel sounds Extremities: 1+ LE edema Hosp A/P (1) Chronic systolic HF (heart failure) Code(s): I50.22 - CHRONIC SYSTOLIC (CONGESTIVE) HEART FAILURE Status: Acute (2) Anemia due to blood loss, acute Code(s): D62 - ACUTE POSTHEMORRHAGIC ANEMIA Status: Acute (3) Warfarin-induced coagulopathy Code(s): D68.32 - HEMORRHAGIC DISORD D/T EXTRINSIC CIRCULATING ANTICOAGULANTS; T45.515A - ADVERSE EFFECT OF ANTICOAGULANTS, INITIAL ENCOUNTER Status: Resolved (4) Myocardial infarction type 2 Code(s): I21.A1 - MYOCARDIAL INFARCTION TYPE 2 Status: Acute (5) Upper gastrointestinal hemorrhage Code(s): K92.2 - GASTROINTESTINAL HEMORRHAGE, UNSPECIFIED Status: Acute (6) Atrial fibrillation with controlled ventricular response Code(s): I48.91 - UNSPECIFIED ATRIAL FIBRILLATION Status: Acute (7) CAD (coronary artery disease) Code(s): I25.10 - ATHSCL HEART DISEASE OF [place] CORONARY ARTERY W/O ANG PCTRS Status: Acute Qualifiers: Coronary Disease-Associated Artery/Lesion type: [place] artery [place] vs. transplanted heart: [place] heart Associated angina: without angina Qualified Code(s): I25.10 - Atherosclerotic heart disease of [place] coronary artery without angina pectoris (8) DM type 2 causing CKD stage 4 Code(s): E11.22 - TYPE 2 DIABETES MELLITUS W DIABETIC CHRONIC KIDNEY DISEASE; N18.4 - CHRONIC KIDNEY DISEASE, STAGE 4 (SEVERE) Status: Acute Qualifiers: Diabetes mellitus terminal carman insulin use: without skilled nursing use Qualified Code(s): E11.22 - Type 2 diabetes mellitus with diabetic chronic kidney disease ; N18.4 - Chronic kidney disease, stage 4 (severe) (9) HTN (hypertension) Code(s): I10 - ESSENTIAL (PRIMARY) HYPERTENSION Status: Chronic Qualifiers: Hypertension type: essential hypertension Qualified Code(s): I10 - Essential (primary) hypertension - Plan Hg 9 post xfusion needs mild diuresis cont PPI, comt off anticoag discuss with cardiology
[2018-11-29 12:10] LABS: Calcitriol (1,25 di-OH Vit D) 8.5 pg/mL (19.9-79.3)
--- NOTE | 2018-11-29 12:56 | PRG ---
DATE OF SERVICE: 11/29/2018 SUBJECTIVE: A 73-year-old gentleman, being seen for hypocalcemia and CKD. The patient denies any nausea, vomiting, or chest pain. OBJECTIVE: GENERAL: The patient is awake and alert. VITAL SIGNS: Afebrile, pulse 98, breathing 16 and blood pressure 120/63. GENERAL APPEARANCE AND MENTAL STATUS: Fair. HEAD/NECK: Normocephalic. Atraumatic. EYES: EOMI. No deformity. EARS: Clear. No ulcers. NOSE: Intact. No lesions. MOUTH: Clear. No discharge. THROAT: Clear. No exudate. LUNGS: Clear. No crackles. CARDIAC: S1, S2. No rub. ABDOMEN: Benign. Bowel sounds positive. GENITALIA/RECTUM: Albert absent. BACK/EXTREMITIES: Edema 0+. NEUROLOGICAL: Alert and motor intact. SKIN: LYMPHATICS: LABORATORY DATA: Labs show hemoglobin 9. Potassium is 4 and creatinine 2.9. ASSESSMENT AND PLAN: 1. Acute kidney injury with chronic kidney disease stage 4, stable. 2. Hypertension, stable. 3. Hypocalcemia, improved. 4. Hypomagnesemia, improved. 5. Medication based on GFR appropriate. Job ID: [id number] [facility]
[2018-11-29] MEDS: traMADol HCl 50 MG TAB PO PRN (20:39)
[2018-11-29] MEDS: Acetaminophen 325 MG TAB PO PRN (22:34)
[2018-11-30 07:35] VITALS: BMI 24.0
--- NOTE | 2018-11-30 08:53 | PRG ---
DATE OF SERVICE: 11/29/2018 REASON FOR CONSULTATION: Hematemesis, gastric ulcer, anemia. SUBJECTIVE: The patient states that he is feeling much better today when compared to yesterday. He did receive some blood yesterday to increase his hemoglobin and hematocrit with an appropriate response and states that his shortness of breath has lessened with the influx of blood. Currently, he denies any nausea, vomiting, fevers, chills, abdominal pain, hematemesis, melena, or hematochezia. He did have a bowel movement earlier today that was black in coloration, but solid in consistency while having oral iron on his medication list. OBJECTIVE: VITAL SIGNS: Temperature 98.4, pulse 84, blood pressure 141/66, respiratory rate 16, and saturating 94% on room air. GENERAL: The patient was lying in bed, in no acute distress. Alert and oriented x4. CARDIOVASCULAR: Regular rate and rhythm. RESPIRATORY: Clear to auscultation bilaterally. ABDOMEN: Normoactive bowel sounds. Soft, nontender, nondistended. EXTREMITIES: No cyanosis, clubbing, or edema. LABORATORY DATA: CBC with a white blood cell count of 7.9, hemoglobin 9, hematocrit 26.6, and platelets 201. Chemistry with a sodium of 142, potassium 4, chloride 113, CO2 of 18, BUN 60, creatinine 2.99, and glucose 110. IMAGING DATA: No current GI imaging is available for review. ASSESSMENT AND PLAN: The patient is a 73-year-old male with past medical history of coronary artery disease, diabetes, hyperlipidemia, hypertension, osteoarthritis, chronic obstructive pulmonary disease, gout, chronic kidney disease, chronic anemia, congestive heart failure with an ejection fraction of 30% to 35%, and cerebral vascular accident, on full anticoagulation with Coumadin prior to admission, presenting with hematemesis secondary to a supratherapeutic INR and gastric ulcer/arteriovenous malformation. Hematemesis. The patient initially presented with hematemesis and melena the day of admission with a significantly elevated INR of approximately 7 upon evaluation in the [facility]. After resuscitative efforts, he underwent upper endoscopy, which showed the presence of three sites of potential bleeding. They were all treated with bipolar cauterization. Since endoscopy, he has not had any further episodes of hematemesis or overt melena, although he did have a black stool earlier today consistent with administration of oral iron. His hemoglobin and hematocrit were slightly downtrending, but have responded appropriately to infusion of an additional one PRBC. At this point in time, there is the likelihood of active gastrointestinal bleeding is low while on the current regimen. RECOMMENDATIONS: 1. We would continue to trend his H and H and transfuse as necessary to maintain an H and H of around 10/30 per Cardiology recommendations. 2. We would continue to monitor clinically for signs of active GI bleeding. 3. Continue PPI 40 mg b.i.d. for at least the next 8 to 12 weeks, then consider decreasing to once daily. 4. Pain control per primary team. Given the lack of GI bleeding and stable H and H, we will sign off at this time. Please call with any additional questions. Job ID: [id number]
[2018-11-30] MEDS: Calcium Carbonate 500 MG ChewTAB PO SCH ×3 (09:21→20:02)
[2018-11-30] MEDS: Carvedilol 6.25 MG TAB PO SCH ×2 (09:22→16:04)
[2018-11-30] MEDS: Calcitriol 0.25 MCG CAP PO SCH (09:22)
[2018-11-30] MEDS: Atorvastatin Calcium 20 MG TAB PO SCH (09:22)
[2018-11-30] MEDS: Terazosin HCl 5 MG CAP PO SCH (09:22)
[2018-11-30] MEDS: Acetaminophen 325 MG TAB PO PRN ×3 (09:22→20:02)
[2018-11-30] MEDS: Allopurinol 100 MG TAB PO SCH (09:23)
[2018-11-30] MEDS: Ferrous Sulfate 325 MG TAB PO SCH (09:23)
[2018-11-30] MEDS: Pantoprazole 40 MG VIAL IVP SCH ×2 (09:23→20:02)
[2018-11-30] MEDS: Furosemide 40 MG TAB PO SCH ×2 (09:23→16:04)
--- NOTE | 2018-11-30 09:37 | PDOC.HOSPP ---
- Subjective Encounter Date: 11/30/18 Encounter Time: 09:35 Subjective: no chest pain, sob, bleeding - Objective Vital Signs & Weight: Vital Signs (12 hours) Temp Pulse Resp BP BP BP Pulse Ox 11/30/18 09:22 142/63 H 11/30/18 08:00 98.3 F 89 20 142/63 H 95 11/30/18 07:13 98.1 F 84 16 165/72 H 94 L 11/30/18 06:16 80 18 100 11/30/18 04:00 98.2 F 87 18 153/70 H 92 L 11/30/18 00:00 98.2 F 84 20 158/72 H 92 L Weight Weight 163 lb Most Recent Monitor Data Heart Rate from ECG 77 NIBP 124/70 NIBP BP-Mean 88 Respiration from ECG 20 SpO2 98 I&O: 11/29/18 11/30/18 12/01/18 06:59 06:59 06:59 Intake Total 2163 1743 Output Total 1920 2350 Balance 243 -607 Result Diagrams: 11/29/18 04:20 11/29/18 04:20 Hospitalist ROS - Medication Medications: Active Medications Generic Name Dose Route Start Last Admin Trade Name Freq PRN Reason Stop Dose Admin Acetaminophen 650 mg 11/25/18 08:13 11/30/18 09:22 Tylenol PO 650 mg Q4H PRN Administration Headache/Fever/Mild Pain (1-3) Albuterol/Ipratropium 3 ml 11/27/18 12:30 11/30/18 06:16 Duoneb NEB 3 ml TID-RT FERNANDO Administration Allopurinol 100 mg 11/27/18 09:00 11/30/18 09:23 Zyloprim PO 100 mg DAILY FERNANDO Administration Atorvastatin Calcium 20 mg 11/27/18 09:00 11/30/18 09:22 Lipitor PO 20 mg DAILY FERNANDO Administration Calcitriol 0.5 mcg 11/29/18 09:00 11/30/18 09:22 Rocaltrol PO 0.5 mcg DAILY FERNANDO Administration Calcium Carbonate 1,500 mg 11/28/18 21:00 11/30/18 09:21 Tums PO 1,500 mg TID FERNANDO Administration Carvedilol 12.5 mg 11/29/18 08:00 11/30/18 09:22 Coreg PO 12.5 mg BID-WM FERNANDO Administration Diphenhydramine HCl 25 mg 11/28/18 22:15 11/28/18 22:37 Benadryl PO 25 mg Q6H PRN Administration Itching & Insomnia Ergocalciferol 1.25 mg 11/27/18 09:00 11/27/18 10:11 Drisdol PO 1.25 mg Q7DAYS FERNANDO Administration Ferrous Sulfate 325 mg 11/27/18 08:00 11/30/18 09:23 Feosol PO 325 mg QAM-WM FERNANDO Administration Furosemide 40 mg 11/30/18 09:00 11/30/18 09:23 Lasix PO 40 mg 0900,1400 FERNANDO Administration Promethazine HCl 12.5 mg/ 50.5 mls @ 202 mls/hr 11/25/18 14:52 11/25/18 23:32 Sodium Chloride IVPB 50.5 mls Q6H PRN Administration Nausea Ondansetron HCl 4 mg 11/25/18 08:13 11/26/18 06:14 Zofran IVP 4 mg Q6H PRN Administration Nausea/Vomiting Pantoprazole Sodium 40 mg 11/26/18 21:00 11/30/18 09:23 Protonix IVP 40 mg Q12HR FERNANDO Administration Sodium Chloride 10 ml 11/26/18 09:00 11/30/18 09:23 Flush - Normal Saline IVF 10 ml Q12HR FERNANDO Administration Terazosin HCl 10 mg 11/27/18 09:00 11/30/18 09:22 Hytrin PO 10 mg DAILY FERNANDO Administration Tramadol HCl 50 mg 11/26/18 03:33 11/29/18 20:39 Ultram PO 50 mg Q6H PRN Administration Moderate Pain (4-6) - Exam Neck: no JVD Heart: RRR, no murmur Respiratory: CTAB Gastrointestinal: soft, normal bowel sounds Extremities: no edema Hosp A/P (1) Chronic systolic HF (heart failure) Code(s): I50.22 - CHRONIC SYSTOLIC (CONGESTIVE) HEART FAILURE Status: Chronic (2) Anemia due to blood loss, acute Code(s): D62 - ACUTE POSTHEMORRHAGIC ANEMIA Status: Acute (3) Warfarin-induced coagulopathy Code(s): D68.32 - HEMORRHAGIC DISORD D/T EXTRINSIC CIRCULATING ANTICOAGULANTS; T45.515A - ADVERSE EFFECT OF ANTICOAGULANTS, INITIAL ENCOUNTER Status: Resolved (4) Myocardial infarction type 2 Code(s): I21.A1 - MYOCARDIAL INFARCTION TYPE 2 Status: Resolved (5) Upper gastrointestinal hemorrhage Code(s): K92.2 - GASTROINTESTINAL HEMORRHAGE, UNSPECIFIED Status: Acute (6) Atrial fibrillation with controlled ventricular response Code(s): I48.91 - UNSPECIFIED ATRIAL FIBRILLATION Status: Chronic (7) CAD (coronary artery disease) Code(s): I25.10 - ATHSCL HEART DISEASE OF [place] CORONARY ARTERY W/O ANG PCTRS Status: Acute Qualifiers: Coronary Disease-Associated Artery/Lesion type: [place] artery [place] vs. transplanted heart: [place] heart Associated angina: without angina Qualified Code(s): I25.10 - Atherosclerotic heart disease of [place] coronary artery without angina pectoris (8) DM type 2 causing CKD stage 4 Code(s): E11.22 - TYPE 2 DIABETES MELLITUS W DIABETIC CHRONIC KIDNEY DISEASE; N18.4 - CHRONIC KIDNEY DISEASE, STAGE 4 (SEVERE) Status: Acute Qualifiers: Diabetes mellitus longterm insulin use: without termite exterminator use Qualified Code(s): E11.22 - Type 2 diabetes mellitus with diabetic chronic kidney disease ; N18.4 - Chronic kidney disease, stage 4 (severe) (9) HTN (hypertension) Code(s): I10 - ESSENTIAL (PRIMARY) HYPERTENSION Status: Chronic Qualifiers: Hypertension type: essential hypertension Qualified Code(s): I10 - Essential (primary) hypertension - Plan Transfuse 1 unit PRBC to reach cardiology target of 10 cont diuresis- lasix 40mg po daily. cont b-nancy cont AM cbc cont PPi discuss whether anticoag to be restarted with, card\GI
[2018-11-30 10:57] LABS: Calcium 6.8 mg/dL (7.8-10.44); Magnesium 1.3 mg/dL (1.6-2.6)
[2018-11-30 10:59] LABS: Anion Gap 11 mmol/L (10-20); Calc. Creatinine Clearance 22 mL/min (70-130); Calcium 6.6 mg/dL (7.8-10.44); Carbon Dioxide 24 mmol/L (23-31); Chloride 113 mmol/L (98-107); Estimated GFR-MDRD 20; Glucose 138 mg/dL (83-110); Potassium 3.7 mmol/L (3.5-5.1); Sodium 144 mmol/L (136-145)
[2018-11-30 11:12] LABS: BUN (Urea Nitrogen) 56 mg/dL (8.4-25.7)
--- NOTE | 2018-11-30 11:29 | PRG ---
DATE OF SERVICE: 11/30/2018 SUBJECTIVE: He is better, less short of breath, less cough, and less wheezing. OBJECTIVE: VITAL SIGNS: Saturations are 95% on room air, pulse 80, blood pressure 130/80, and respiratory rate 18. CHEST: No wheezing. CARDIAC: Normal S1 and S2. No gallops. ABDOMEN: No masses. ASSESSMENT: Gastrointestinal bleed, stable. Chronic obstructive pulmonary disease, stable. Severe deconditioning and renal failure. PLAN: Continue neb treatments and supportive care. Pulmonary follow at a distance. Call as needed. Job ID: [id number]
--- NOTE | 2018-11-30 11:30 | PRG ---
DATE OF SERVICE: 11/30/2018 SUBJECTIVE: A 73-year-old gentleman being seen for acute kidney injury. The patient denies any nausea, vomiting, or chest pain. OBJECTIVE: GENERAL: The patient is awake and alert. VITAL SIGNS: Afebrile. Pulse 89, breathing 16, and blood pressure 142/63. GENERAL APPEARANCE AND MENTAL STATUS: Fair. HEAD/NECK: Normocephalic. Atraumatic. EYES: EOMI. No deformity. EARS: Clear. No ulcers. NOSE: Intact. No lesions. MOUTH: Clear. No discharge. THROAT: Clear. No exudate. LUNGS: Clear. No crackles. CARDIAC: S1, S2. No rub. ABDOMEN: Benign. Bowel sounds positive. GENITALIA/RECTUM: Albert absent. BACK/EXTREMITIES: Edema 0+. NEUROLOGICAL: Alert and motor intact. SKIN: LYMPHATICS: LABORATORY DATA: Creatinine 3.05, calcium 6.8, and magnesium 1.3. ASSESSMENT AND PLAN: 1. Acute kidney injury with chronic kidney disease stage 4, stable. 2. Acute tubular necrosis, improved. 3. Hypertension, stable. 4. Anemia, stable. 5. Hypocalcemia, improving. Continue vitamin D and calcitriol. 6. Hypomagnesemia. We would recommend magnesium replacement today. Job ID: [id number]
--- NOTE | 2018-11-30 12:44 | PDOC.CPN ---
- Subjective Date: 11/30/18 Time: 12:46 Interval history: The pt seen and examined. No overnight events. No cardiac complaints. - Objective Allergies/Adverse Reactions: Allergies Allergy/AdvReac Type Severity Reaction Status Date / Time Iodine and Iodide Containing Allergy Verified 11/26/18 05:04 Produc Visit Medications: Current Medications Acetaminophen (Tylenol) 650 mg PO Q4H PRN PRN Reason: Headache/Fever/Mild Pain (1-3) Last Admin: 11/30/18 09:22 Dose: 650 mg Albuterol/Ipratropium (Duoneb) 3 ml NEB TID-RT [facility] Last Admin: 11/30/18 06:16 Dose: 3 ml Allopurinol (Zyloprim) 100 mg PO DAILY [facility] Last Admin: 11/30/18 09:23 Dose: 100 mg Atorvastatin Calcium (Lipitor) 20 mg PO DAILY [facility] Last Admin: 11/30/18 09:22 Dose: 20 mg Calcitriol (Rocaltrol) 0.5 mcg PO DAILY [facility] Last Admin: 11/30/18 09:22 Dose: 0.5 mcg Calcium Carbonate (Tums) 1,500 mg PO TID [facility] Last Admin: 11/30/18 09:21 Dose: 1,500 mg Carvedilol (Coreg) 12.5 mg PO BID-WM [facility] Last Admin: 11/30/18 09:22 Dose: 12.5 mg Diphenhydramine HCl (Benadryl) 25 mg PO Q6H PRN PRN Reason: Itching & Insomnia Last Admin: 11/28/18 22:37 Dose: 25 mg Ergocalciferol (Drisdol) 1.25 mg PO Q7DAYS [facility] Last Admin: 11/27/18 10:11 Dose: 1.25 mg Ferrous Sulfate (Feosol) 325 mg PO QAM-WM [facility] Last Admin: 11/30/18 09:23 Dose: 325 mg Furosemide (Lasix) 40 mg PO 0900,1400 [facility] Last Admin: 11/30/18 09:23 Dose: 40 mg Promethazine HCl 12.5 mg/ (Sodium Chloride) 50.5 mls @ 202 mls/hr IVPB Q6H PRN PRN Reason: Nausea Last Admin: 11/25/18 23:32 Dose: 50.5 mls Magnesium Sulfate 1 gm/ Sodium (Chloride) 102 mls @ 100 mls/hr IVPB NOW FERNANDO Stop: 11/30/18 13:00 Last Admin: 11/30/18 12:31 Dose: 102 mls Ondansetron HCl (Zofran) 4 mg IVP Q6H PRN PRN Reason: Nausea/Vomiting Last Admin: 11/26/18 06:14 Dose: 4 mg Pantoprazole Sodium (Protonix) 40 mg IVP Q12HR [facility] Last Admin: 11/30/18 09:23 Dose: 40 mg Sodium Chloride (Flush - Normal Saline) 10 ml IVF Q12HR [facility] Last Admin: 11/30/18 09:23 Dose: 10 ml Sodium Chloride (Flush - Normal Saline) 10 ml IVF PRN PRN PRN Reason: Saline Flush Terazosin HCl (Hytrin) 10 mg PO DAILY [facility] Last Admin: 11/30/18 09:22 Dose: 10 mg Tramadol HCl (Ultram) 50 mg PO Q6H PRN PRN Reason: Moderate Pain (4-6) Last Admin: 11/29/18 20:39 Dose: 50 mg Vital Signs & Weight: Vital Signs Temp Pulse Pulse Pulse Resp BP BP 11/30/18 11:37 97.9 F 72 16 11/30/18 10:40 81 83 142/66 H 11/30/18 09:22 142/63 H 11/30/18 08:00 98.3 F 89 20 11/30/18 07:13 98.1 F 84 16 11/30/18 06:16 80 18 11/30/18 04:00 98.2 F 87 18 BP BP BP Pulse Ox 11/30/18 11:37 135/60 93 L 11/30/18 10:40 136/65 11/30/18 09:22 11/30/18 08:00 142/63 H 95 11/30/18 07:13 165/72 H 94 L 11/30/18 06:16 100 11/30/18 04:00 153/70 H 92 L Weight 163 lb - Physical Exam General: alert & oriented x3 Cardiac: regular rate and rhythm, S1/S2 Lungs: decreased breath sounds Neuro: cranial nerve 2-12 intact Abdomen: unremarkable Skin: clear Musculoskeletal: decreased range of motion - Labs Result Diagrams: 11/29/18 04:20 11/30/18 10:17 Troponin/CKMB CK-MB (CK-2) 152.9 ng/mL (0-6.6) H* 11/26/18 14:43 Troponin I 44.660 ng/mL (< 0.028) H* 11/27/18 17:21 - Telemetry Sinus rhythms and dysrhythmias: sinus rhythm - Assessment/Plan Assessment/Plan: 1. Elevated Trop 2/2 severe anemia or possible TN- asymptomatic; He is not a candidate for cardiac cath at this time due to anemia and elevated Cr level. 2. Severe Anemia 2/2 upper GI hemorrhage with Coumadin - Hgb on 11/29/2018 was 9.2. 3. Afib with RVR - remains in SR; LINQ interrogation showed 1 episode of Afib for 2 mins on 11/24/2018. On 12.5mg BID; Not candidate for OAC due to hx of GI bleed x2 in past 4. Chronic Systolic HF with EF 30-35% - On Coreg; Not on ROZINA/ARB due to hx of CKD 5. CAD - stable; on Coreg, Lipitor, Not on ASA for now due to GI bleed 6. CKD - managed by client business manager 7. HTN - stable 8. HLD - On statin 9. DM type 2 - managed by PCP 10. COPD - stable with RA 11. hx of CVA x 6; He is s/p CVA in 07/2018 and this is why the loop recorder was inserted to eval. possible arrhythmias as a cause of the CVA. MAR reviewed * Echo in 11/2018 with EF 30-35%, mod dilated LA, small pericardial effusion, mild-mod MR, trace AR, mild TR, and mild with Valve area 1.6 sq cm * The pt is a candidate for a life-vest on d/c. If the EF does not improve he may become a candidate for an AICD. Pt. seen and eval. by me. No new c/o. I agree with the A/P by the CAISSON WORKER. He has been overall stable from a cardiac standpoint in the last couple days. He will need a life-vest prior to d/c. This is being arranged. Pt. with multiple medical problems. He may need further cardiac eval. in the next few weeks. He will need a repeat echo in 3 months to eval the EF. yuri
--- NOTE | 2018-11-30 16:11 | PDOC.EVN ---
Event Note - Event Note Event Note: have discussed with Eladio Brown and Kirsten- no anticofranki for 3 weeks due to having bled x2 on warfarin. plan, monitor H&H for 2 more days, if stable DC back to care home. Dr Brown is arranging life vest to be placed 12/02/18
[2018-12-01] MEDS ORDERED: Furosemide 40 MG/4 ML VIAL SLOW IVP SCH (03:00)
[2018-12-01 05:03] LABS: #Eosinphils 0.6 thou/uL (0.0-0.7); #Lymphocytes 0.4 thou/uL (1.20-3.40); #Monocytes 0.4 thou/uL (0.11-0.59); #Neutrophils 3.8 thou/uL (1.40-6.50); %Basophils 0.2 % (0.0-1.0); %Eosinophils 12.1 % (0.0-10.0); %Lymphocytes 7.3 % (21.0-51.0); %Monocytes 6.8 % (0.0-10.0); %Neutrophils 73.7 % (42.0-75.0); Hemoglobin 10.3 g/dL (14.0-18.0); Mean Corpuscular HGB CONC 33.4 g/dL (32.0-36.0); Mean Corpuscular Hemoglobin 31.1 pg (27.0-31.0); Mean Corpuscular Volume 93.1 fL (78.0-98.0); Mean Platelet Volume 7.4 fL (7.4-10.4); Platelet Count 219 thou/uL (130-400); RBC Distribution Width 15.8 % (11.5-14.5); Red Blood Cell (RBC) Count 3.32 mill/uL (4.70-6.10); White Blood Cell (WBC) Count 5.2 thou/uL (4.8-10.8)
[2018-12-01 05:23] LABS: Anion Gap 16 mmol/L (10-20); BUN (Urea Nitrogen) 57 mg/dL (8.4-25.7); Calc. Creatinine Clearance 23 mL/min (70-130); Calcium 7.3 mg/dL (7.8-10.44); Carbon Dioxide 21 mmol/L (23-31); Chloride 112 mmol/L (98-107); Estimated GFR-MDRD 21; Glucose 98 mg/dL (83-110); Magnesium 1.4 mg/dL (1.6-2.6); Potassium 3.9 mmol/L (3.5-5.1); Sodium 145 mmol/L (136-145)
--- NOTE | 2018-12-01 07:17 | RAD ---
CHEST 1 VIEW: Date: 12/01/18 INDICATION: Shortness of breath. COMPARISON: Prior exam dated 11/29/18. FINDINGS: There is cardiomegaly. There is worsening perihilar opacity. There are tiny bilateral pleural effusio ns. No pneumothorax is evident. IMPRESSION: 1. Worsening perihilar air space opacity, suspicious for worsening edema. 2. Cardiomegaly and pulmonary vascular congestion appears slightly more pronounced. 3. Small bilateral pleural effusions persist. POS: BH
[2018-12-01] MEDS: Calcium Carbonate 500 MG ChewTAB PO SCH ×3 (09:14→20:51)
[2018-12-01] MEDS: Acetaminophen 325 MG TAB PO PRN ×2 (09:14→18:12)
[2018-12-01] MEDS: diphenhydrAMINE 25 MG CAP PO PRN ×2 (09:14→20:51)
[2018-12-01] MEDS: Calcitriol 0.25 MCG CAP PO SCH (09:14)
[2018-12-01] MEDS: Ferrous Sulfate 325 MG TAB PO SCH (09:15)
[2018-12-01] MEDS: Atorvastatin Calcium 20 MG TAB PO SCH (09:15)
[2018-12-01] MEDS: Carvedilol 6.25 MG TAB PO SCH ×2 (09:15→16:12)
[2018-12-01] MEDS: Allopurinol 100 MG TAB PO SCH (09:15)
[2018-12-01] MEDS: Furosemide 40 MG TAB PO SCH ×2 (09:15→13:45)
[2018-12-01] MEDS: Terazosin HCl 5 MG CAP PO SCH (09:15)
[2018-12-01] MEDS: Pantoprazole 40 MG VIAL IVP SCH ×2 (09:16→20:52)
--- NOTE | 2018-12-01 12:23 | PDOC.HOSPP ---
- Subjective Encounter Date: 12/01/18 Encounter Time: 12:21 non-verbal Subjective: patient is upset that [facility] but would like to go to rehab; no bleeding; tolerating oral intake; awaiting lifevest, no other events overnight - Objective Vital Signs & Weight: Vital Signs (12 hours) Temp Pulse Resp BP BP Pulse Ox 12/01/18 09:15 171/72 H 12/01/18 08:03 83 16 94 L 12/01/18 07:33 99.1 F 87 26 H 171/72 H 93 L 12/01/18 03:53 98.0 F 74 15 132/60 91 L 12/01/18 03:20 96 12/01/18 02:53 70 22 H 96 12/01/18 02:37 75 22 H 144/65 H 97 Weight Weight 159 lb 9 oz Most Recent Monitor Data Heart Rate from ECG 77 NIBP 124/70 NIBP BP-Mean 88 Respiration from ECG 20 SpO2 98 I&O: 11/30/18 12/01/18 12/02/18 06:59 06:59 06:59 Intake Total 1743 1410 Output Total 2350 1665 Balance -607 -921 Result Diagrams: 12/01/18 04:40 12/01/18 04:40 Hospitalist ROS - Review of Systems Respiratory: denies: shortness of breath Cardiovascular: denies: chest pain Gastrointestinal: denies: abdominal pain - Medication Medications: Active Medications Generic Name Dose Route Start Last Admin Trade Name Freq PRN Reason Stop Dose Admin Acetaminophen 650 mg 11/25/18 08:13 12/01/18 09:14 Tylenol PO 650 mg Q4H PRN Administration Headache/Fever/Mild Pain (1-3) Albuterol/Ipratropium 3 ml 11/27/18 12:30 12/01/18 08:03 Duoneb NEB 3 ml TID-RT FERNANDO Administration Allopurinol 100 mg 11/27/18 09:00 12/01/18 09:15 Zyloprim PO 100 mg DAILY FERNANDO Administration Atorvastatin Calcium 20 mg 11/27/18 09:00 12/01/18 09:15 Lipitor PO 20 mg DAILY FERNANDO Administration Calcitriol 0.5 mcg 11/29/18 09:00 12/01/18 09:14 Rocaltrol PO 0.5 mcg DAILY FERNANDO Administration Calcium Carbonate 1,500 mg 11/28/18 21:00 12/01/18 09:14 Tums PO 1,500 mg TID FERNANDO Administration Carvedilol 12.5 mg 11/29/18 08:00 12/01/18 09:15 Coreg PO 12.5 mg BID-WM FERNANDO Administration Diphenhydramine HCl 25 mg 11/28/18 22:15 12/01/18 09:14 Benadryl PO 25 mg Q6H PRN Administration Itching & Insomnia Ergocalciferol 1.25 mg 11/27/18 09:00 11/27/18 10:11 Drisdol PO 1.25 mg Q7DAYS FERNANDO Administration Ferrous Sulfate 325 mg 11/27/18 08:00 12/01/18 09:15 Feosol PO 325 mg QAM-WM FERNANDO Administration Furosemide 40 mg 11/30/18 09:00 12/01/18 09:15 Lasix PO 40 mg 0900,1400 FERNANDO Administration Promethazine HCl 12.5 mg/ 50.5 mls @ 202 mls/hr 11/25/18 14:52 11/25/18 23:32 Sodium Chloride IVPB 50.5 mls Q6H PRN Administration Nausea Ondansetron HCl 4 mg 11/25/18 08:13 11/26/18 06:14 Zofran IVP 4 mg Q6H PRN Administration Nausea/Vomiting Pantoprazole Sodium 40 mg 11/26/18 21:00 12/01/18 09:16 Protonix IVP 40 mg Q12HR FERNANDO Administration Sodium Chloride 10 ml 11/26/18 09:00 12/01/18 09:16 Flush - Normal Saline IVF 10 ml Q12HR FERNANDO Administration Sodium Chloride 10 ml 11/25/18 22:35 11/30/18 20:02 Flush - Normal Saline IVF 10 ml PRN PRN Administration Saline Flush Terazosin HCl 10 mg 11/27/18 09:00 12/01/18 09:15 Hytrin PO 10 mg DAILY FERNANDO Administration Tramadol HCl 50 mg 11/26/18 03:33 11/29/18 20:39 Ultram PO 50 mg Q6H PRN Administration Moderate Pain (4-6) - Exam General Appearance: NAD, awake alert Eye: anicteric sclera ENT: normocephalic atraumatic, moist mucosa Neck: supple, no JVD Heart: RRR, no murmur Respiratory: no wheezes, no ronchi, no tachypnea Gastrointestinal: soft, non-tender, normal bowel sounds Extremities: negative: no clubbing, no edema Skin: normal turgor, no rashes (back) Neurological: cranial nerve grossly intact, no weakness Musculoskeletal: normal tone, normal strength Psychiatric: normal affect, normal behavior Hosp A/P (1) Anemia due to blood loss, acute Code(s): D62 - ACUTE POSTHEMORRHAGIC ANEMIA Status: Acute Plan: repeat hemoglobin in the morning, no anticoagulants; monitor for bleeding, is hgb is stable and no active bleeding may discharge (2) CAD (coronary artery disease) Code(s): I25.10 - ATHSCL HEART DISEASE OF [place] CORONARY ARTERY W/O ANG PCTRS Status: Acute Qualifiers: Coronary Disease-Associated Artery/Lesion type: [place] artery [place] vs. transplanted heart: [place] heart Associated angina: without angina Qualified Code(s): I25.10 - Atherosclerotic heart disease of [place] coronary artery without angina pectoris Plan: continue current medical therapy; no anticoagulants due to increased bleeding risk, appreciate cardiology evaluation and recommendations (3) DM type 2 causing CKD stage 4 Code(s): E11.22 - TYPE 2 DIABETES MELLITUS W DIABETIC CHRONIC KIDNEY DISEASE; N18.4 - CHRONIC KIDNEY DISEASE, STAGE 4 (SEVERE) Status: Acute Qualifiers: Diabetes mellitus alf insulin use: without alf use Qualified Code(s): E11.22 - Type 2 diabetes mellitus with diabetic chronic kidney disease ; N18.4 - Chronic kidney disease, stage 4 (severe) Plan: continue with bedside glucose monitoring and insulin sliding scale coverage (4) Atrial fibrillation with controlled ventricular response Code(s): I48.91 - UNSPECIFIED ATRIAL FIBRILLATION Status: Chronic Plan: cardiac monitoring with rate control; not a candidate for anticoagulation at this time (5) Chronic systolic HF (heart failure) Code(s): I50.22 - CHRONIC SYSTOLIC (CONGESTIVE) HEART FAILURE Status: Chronic Plan: poor prognosis overall discussed with patient; continue with diuresis and await lifevest - Plan discharge planning
--- NOTE | 2018-12-01 13:11 | PRG ---
DATE OF SERVICE: 12/01/2018 SUBJECTIVE: A 73-year-old gentleman, being seen for acute kidney injury. The patient denied nausea, vomiting, or chest pain. OBJECTIVE: GENERAL: The patient is awake and alert. VITAL SIGNS: Afebrile, pulse 83, breathing 16, blood pressure 132/62. GENERAL APPEARANCE AND MENTAL STATUS: Fair. HEAD/NECK: Normocephalic. Atraumatic. EYES: EOMI. No deformity. EARS: Clear. No ulcers. NOSE: Intact. No lesions. MOUTH: Clear. No discharge. THROAT: Clear. No exudate. LUNGS: Clear. No crackles. CARDIAC: S1, S2. No rub. ABDOMEN: Benign. Bowel sounds positive. GENITALIA/RECTUM: Albert absent. BACK/EXTREMITIES: Edema 0+. NEUROLOGICAL: Alert and motor intact. SKIN: LYMPHATICS: LABORATORY DATA: Show hemoglobin 10.4. Creatinine 2.9. ASSESSMENT AND PLAN: 1. Acute kidney injury with acute tubular necrosis, stable. 2. Hypertension, stable. 3. Anemia, stable. 4. Hypercalcemia, improved. 5. Hypomagnesemia. Recommend 1 g of magnesium sulfate. Can decrease the calcitriol to 0.25 daily. Job ID: [id number]
--- NOTE | 2018-12-01 13:12 | PDOC.CPN ---
- Subjective Date: 12/01/18 Time: 13:15 Interval history: The pt seen and examined. No overnight events. No cardiac complaints. - Objective Allergies/Adverse Reactions: Allergies Allergy/AdvReac Type Severity Reaction Status Date / Time Iodine and Iodide Containing Allergy Verified 11/26/18 05:04 Produc Visit Medications: Current Medications Acetaminophen (Tylenol) 650 mg PO Q4H PRN PRN Reason: Headache/Fever/Mild Pain (1-3) Last Admin: 12/01/18 09:14 Dose: 650 mg Albuterol/Ipratropium (Duoneb) 3 ml NEB TID-RT [facility] Last Admin: 12/01/18 08:03 Dose: 3 ml Allopurinol (Zyloprim) 100 mg PO DAILY [facility] Last Admin: 12/01/18 09:15 Dose: 100 mg Atorvastatin Calcium (Lipitor) 20 mg PO DAILY [facility] Last Admin: 12/01/18 09:15 Dose: 20 mg Calcitriol (Rocaltrol) 0.5 mcg PO DAILY [facility] Last Admin: 12/01/18 09:14 Dose: 0.5 mcg Calcium Carbonate (Tums) 1,500 mg PO TID [facility] Last Admin: 12/01/18 09:14 Dose: 1,500 mg Carvedilol (Coreg) 12.5 mg PO BID-WM [facility] Last Admin: 12/01/18 09:15 Dose: 12.5 mg Diphenhydramine HCl (Benadryl) 25 mg PO Q6H PRN PRN Reason: Itching & Insomnia Last Admin: 12/01/18 09:14 Dose: 25 mg Ergocalciferol (Drisdol) 1.25 mg PO Q7DAYS [facility] Last Admin: 11/27/18 10:11 Dose: 1.25 mg Ferrous Sulfate (Feosol) 325 mg PO QAM-WM [facility] Last Admin: 12/01/18 09:15 Dose: 325 mg Furosemide (Lasix) 40 mg PO 0900,1400 [facility] Last Admin: 12/01/18 09:15 Dose: 40 mg Promethazine HCl 12.5 mg/ (Sodium Chloride) 50.5 mls @ 202 mls/hr IVPB Q6H PRN PRN Reason: Nausea Last Admin: 11/25/18 23:32 Dose: 50.5 mls Ondansetron HCl (Zofran) 4 mg IVP Q6H PRN PRN Reason: Nausea/Vomiting Last Admin: 11/26/18 06:14 Dose: 4 mg Pantoprazole Sodium (Protonix) 40 mg IVP Q12HR [facility]ER[facility]O Last Admin: 12/01/18 09:16 Dose: 40 mg Sodium Chloride (Flush - Normal Saline) 10 ml IVF Q12HR FERNANDO Last Admin: 12/01/18 09:16 Dose: 10 ml Sodium Chloride (Flush - Normal Saline) 10 ml IVF PRN PRN PRN Reason: Saline Flush Last Admin: 11/30/18 20:02 Dose: 10 ml Terazosin HCl (Hytrin) 10 mg PO DAILY [facility]ER[facility]O Last Admin: 12/01/18 09:15 Dose: 10 mg Tramadol HCl (Ultram) 50 mg PO Q6H PRN PRN Reason: Moderate Pain (4-6) Last Admin: 11/29/18 20:39 Dose: 50 mg Vital Signs & Weight: Vital Signs Temp Pulse Resp BP BP Pulse Ox 12/01/18 09:15 171/72 H 12/01/18 08:03 83 16 94 L 12/01/18 07:33 99.1 F 87 26 H 171/72 H 93 L 12/01/18 03:53 98.0 F 74 15 132/60 91 L 12/01/18 03:20 96 12/01/18 02:53 70 22 H 96 12/01/18 02:37 75 22 H 144/65 H 97 Weight 159 lb 9 oz - Physical Exam General: alert & oriented x3 HEENT: mucus membranes moist Neck: supple neck Cardiac: regular rate and rhythm, S1/S2 Lungs: decreased breath sounds Abdomen: unremarkable Skin: clear Musculoskeletal: decreased range of motion - Labs Result Diagrams: 12/01/18 04:40 12/01/18 04:40 Troponin/CKMB CK-MB (CK-2) 152.9 ng/mL (0-6.6) H* 11/26/18 14:43 Troponin I 44.660 ng/mL (< 0.028) H* 11/27/18 17:21 - Telemetry Sinus rhythms and dysrhythmias: sinus rhythm - Assessment/Plan Assessment/Plan: 1. Elevated Trop 2/2 severe anemia leading to repeat NV- asymptomatic;He may need further cardiac eval. in the next few weeks. 2. Severe Anemia 2/2 upper GI hemorrhage with Coumadin - Hgb on 11/29/2018 was 9.2. 3. Afib with RVR - remains in SR; LINQ interrogation showed 1 episode of Afib for 2 mins on 11/24/2018. On 12.5mg BID; Not candidate for OAC due to hx of GI bleed x2 in past 4. Chronic Systolic HF with EF 30-35% - On Coreg; Not on ROZINA/ARB due to hx of CKD; will d/c with LifeVest; he will need a repeat echo in 3 months to eval the EF. 5. CAD - stable; on Coreg, Lipitor, Not on ASA for now due to GI bleed 6. CKD - managed by medical record coder 7. HTN - stable 8. HLD - On statin 9. DM type 2 - managed by PCP 10. COPD - stable with RA 11. hx of CVA x 6; He is s/p CVA in 07/2018 and this is why the loop recorder was inserted to eval. possible arrhythmias as a cause of the CVA. MAR reviewed * Echo in 11/2018 with EF 30-35%, mod dilated LA, small pericardial effusion, mild-mod MR, trace AR, mild TR, and mild with Valve area 1.6 sq cm * The pt is a candidate for a life-vest on d/c. If the EF does not improve he may become a candidate for an AICD. Pt. seen and eval. by me. I agree with the A/P by the GENERAL INTERNIST AND PHYSICIAN LEADER. His only c/o today is that he wants to be able to have PT in the nursing home where he is incarcerated. Chest clear. RRR. Waiting for Life-Vest. F/U with [facility] in [place].
[2018-12-02] MEDS: Acetaminophen 325 MG TAB PO PRN ×4 (03:45→20:49)
[2018-12-02 05:10] LABS: Anion Gap 16 mmol/L (10-20); BUN (Urea Nitrogen) 57 mg/dL (8.4-25.7); Calc. Creatinine Clearance 22 mL/min (70-130); Calcium 7.9 mg/dL (7.8-10.44); Carbon Dioxide 24 mmol/L (23-31); Chloride 108 mmol/L (98-107); Estimated GFR-MDRD 21; Glucose 108 mg/dL (83-110); Potassium 3.6 mmol/L (3.5-5.1); Sodium 144 mmol/L (136-145)
[2018-12-02 05:37] LABS: #Eosinphils 0.7 thou/uL (0.0-0.7); #Lymphocytes 0.7 thou/uL (1.20-3.40); #Monocytes 0.5 thou/uL (0.11-0.59); #Neutrophils 4.9 thou/uL (1.40-6.50); %Basophils 0.3 % (0.0-1.0); %Eosinophils 10.7 % (0.0-10.0); %Lymphocytes 9.7 % (21.0-51.0); %Monocytes 6.9 % (0.0-10.0); %Neutrophils 72.5 % (42.0-75.0); Band 2 % (5-11); Eosinophils 12 % (0-10); Hemoglobin 10.6 g/dL (14.0-18.0); Lymphocytes 13 % (21-51); MDiff Complete? YES; Mean Corpuscular Hemoglobin 31.3 pg (27.0-31.0); Monocytes 6 % (0-10); Neutrophil 67 % (42-75); Platelet Count 216 thou/uL (130-400); Platelet Morphology Comment Appears Adequate; Red Blood Cell (RBC) Count 3.39 mill/uL (4.70-6.10); White Blood Cell (WBC) Count 6.8 thou/uL (4.8-10.8)
[2018-12-02] MEDS ORDERED: Calcitriol 0.25 MCG CAP PO SCH (08:26)
[2018-12-02] MEDS: Calcium Carbonate 500 MG ChewTAB PO SCH ×3 (08:54→20:49)
[2018-12-02] MEDS: Allopurinol 100 MG TAB PO SCH (08:54)
[2018-12-02] MEDS: diphenhydrAMINE 25 MG CAP PO PRN ×2 (08:54→20:49)
[2018-12-02] MEDS: Carvedilol 6.25 MG TAB PO SCH ×2 (08:54→16:39)
[2018-12-02] MEDS: Atorvastatin Calcium 20 MG TAB PO SCH (08:54)
[2018-12-02] MEDS: Furosemide 40 MG TAB PO SCH ×2 (08:54→13:04)
[2018-12-02] MEDS: Calcitriol 0.25 MCG CAP PO SCH (08:55)
[2018-12-02] MEDS: Ferrous Sulfate 325 MG TAB PO SCH (08:55)
[2018-12-02] MEDS: Terazosin HCl 5 MG CAP PO SCH (08:55)
[2018-12-02] MEDS: Pantoprazole 40 MG VIAL IVP SCH ×2 (10:18→20:49)
[2018-12-02] MEDS ORDERED: predniSONE 20 MG TAB PO SCH (11:45)
[2018-12-02] MEDS: traMADol HCl 50 MG TAB PO PRN (13:09)
--- NOTE | 2018-12-02 14:24 | PRG ---
DATE OF SERVICE: 12/02/2018 SUBJECTIVE: A 73-year-old gentleman, being seen for acute kidney injury. The patient denied any nausea, vomiting, or chest pain. OBJECTIVE: CONSTITUTIONAL: The patient is awake and alert. VITAL SIGNS: Pulse 88, breathing 16, blood pressure 124/60. GENERAL APPEARANCE AND MENTAL STATUS: Fair. HEAD/NECK: Normocephalic. Atraumatic. EYES: EOMI. No deformity. EARS: Clear. No ulcers. NOSE: Intact. No lesions. MOUTH: Clear. No discharge. THROAT: Clear. No exudate. LUNGS: Clear. No crackles. CARDIAC: S1, S2. No rub. ABDOMEN: Benign. Bowel sounds positive. GENITALIA/RECTUM: Albert absent. BACK/EXTREMITIES: Edema 0+. NEUROLOGICAL: Alert and motor intact. SKIN: LYMPHATICS: LABORATORY DATA: Labs show hemoglobin 10.6. Creatinine is 2.9, calcium 7.9. ASSESSMENT: 1. Acute kidney injury with chronic kidney disease, stable. 2. Hypertension, stable. 3. Anemia, stable. 4. Hypomagnesemia. We will give 1 g of magnesium sulfate. 5. Hypocalcemia, improved. We will decrease the dose of calcitriol to 0.25 daily. I will order labs for tomorrow morning. Job ID: [id number]
--- NOTE | 2018-12-02 17:39 | PDOC.HOSPP ---
- Subjective Encounter Date: 12/02/18 Subjective: feeling better today; working with physical therapy, using a walker; no events overnight; awaiting placement and lifevest; discharge planning - Objective Vital Signs & Weight: Vital Signs (12 hours) Temp Pulse Pulse Pulse Resp BP BP 12/02/18 16:39 125/59 L 12/02/18 15:55 98.0 F 76 16 12/02/18 14:01 60 14 12/02/18 12:29 97.9 F 76 18 12/02/18 09:42 88 89 136/69 12/02/18 09:00 12/02/18 08:54 150/84 H 12/02/18 07:42 80 18 12/02/18 07:33 97.9 F 79 16 BP BP Pulse Ox 12/02/18 16:39 12/02/18 15:55 125/59 L 93 L 12/02/18 14:01 98 12/02/18 12:29 124/60 95 12/02/18 09:42 137/62 12/02/18 09:00 93 L 12/02/18 08:54 12/02/18 07:42 97 12/02/18 07:33 150/84 H 93 L Weight Weight 160 lb 3.2 oz Most Recent Monitor Data Heart Rate from ECG 77 NIBP 124/70 NIBP BP-Mean 88 Respiration from ECG 20 SpO2 98 I&O: 12/01/18 12/02/18 12/03/18 06:59 06:59 06:59 Intake Total 1410 610 268 Output Total 1665 950 Balance -255 -340 268 Result Diagrams: 12/02/18 04:35 12/02/18 04:33 Hospitalist ROS - Review of Systems Respiratory: denies: cough, shortness of breath Cardiovascular: denies: chest pain, palpitations Gastrointestinal: denies: nausea, vomiting, abdominal pain - Medication Medications: Active Medications Generic Name Dose Route Start Last Admin Trade Name Freq PRN Reason Stop Dose Admin Acetaminophen 650 mg 11/25/18 08:13 12/02/18 13:09 Tylenol PO 650 mg Q4H PRN Administration Headache/Fever/Mild Pain (1-3) Albuterol/Ipratropium 3 ml 11/27/18 12:30 12/02/18 14:01 Duoneb NEB 3 ml TID-RT FERNANDO Administration Allopurinol 100 mg 11/27/18 09:00 12/02/18 08:54 Zyloprim PO 100 mg DAILY FERNANDO Administration Atorvastatin Calcium 20 mg 11/27/18 09:00 12/02/18 08:54 Lipitor PO 20 mg DAILY FERNANDO Administration Calcitriol 0.25 mcg 12/02/18 09:00 12/02/18 08:55 Rocaltrol PO 0.25 mcg DAILY FERNANDO Administration Calcium Carbonate 1,500 mg 11/28/18 21:00 12/02/18 16:39 Tums PO 1,500 mg TID FERNANDO Administration Carvedilol 12.5 mg 11/29/18 08:00 12/02/18 16:39 Coreg PO 12.5 mg BID-WM FERNANDO Administration Diphenhydramine HCl 25 mg 12/02/18 01:14 12/02/18 08:54 Benadryl PO 25 mg Q4H PRN Administration Itching & Insomnia Ergocalciferol 1.25 mg 11/27/18 09:00 11/27/18 10:11 Drisdol PO 1.25 mg Q7DAYS FERNANDO Administration Ferrous Sulfate 325 mg 11/27/18 08:00 12/02/18 08:55 Feosol PO 325 mg QAM-WM FERNANDO Administration Furosemide 40 mg 11/30/18 09:00 12/02/18 13:04 Lasix PO 40 mg 0900,1400 FERNANDO Administration Promethazine HCl 12.5 mg/ 50.5 mls @ 202 mls/hr 11/25/18 14:52 11/25/18 23:32 Sodium Chloride IVPB 50.5 mls Q6H PRN Administration Nausea Ondansetron HCl 4 mg 11/25/18 08:13 11/26/18 06:14 Zofran IVP 4 mg Q6H PRN Administration Nausea/Vomiting Pantoprazole Sodium 40 mg 11/26/18 21:00 12/02/18 10:18 Protonix IVP 40 mg Q12HR FERNANDO Administration Sodium Chloride 10 ml 11/26/18 09:00 12/02/18 10:18 Flush - Normal Saline IVF 10 ml Q12HR FERNANDO Administration Sodium Chloride 10 ml 11/25/18 22:35 11/30/18 20:02 Flush - Normal Saline IVF 10 ml PRN PRN Administration Saline Flush Terazosin HCl 10 mg 11/27/18 09:00 12/02/18 08:55 Hytrin PO 10 mg DAILY FERNANDO Administration Tramadol HCl 50 mg 11/26/18 03:33 12/02/18 13:09 Ultram PO 50 mg Q6H PRN Administration Moderate Pain (4-6) - Exam Eye: PERRL, anicteric sclera ENT: normocephalic atraumatic, moist mucosa Neck: supple, no JVD Heart: no murmur, irregular Respiratory: CTAB, no wheezes, no rales Gastrointestinal: soft, non-tender, non-distended Extremities: no cyanosis, no clubbing Extremities - other findings: diffuse muscle wasting Skin: normal turgor, no lesions Neurological: cranial nerve grossly intact, normal sensation to touch Musculoskeletal: diffuse muscle atrophy Psychiatric: normal affect, normal behavior, A&O x 3 Hosp A/P (1) Anemia due to blood loss, acute Code(s): D62 - ACUTE POSTHEMORRHAGIC ANEMIA Status: Acute Plan: hemoglobin has stabilize,d no active bleeding; avoid anticoagulants (2) CAD (coronary artery disease) Code(s): I25.10 - ATHSCL HEART DISEASE OF [place] CORONARY ARTERY W/O ANG PCTRS Status: Acute Qualifiers: Coronary Disease-Associated Artery/Lesion type: [place] artery [place] vs. transplanted heart: [place] heart Associated angina: without angina Qualified Code(s): I25.10 - Atherosclerotic heart disease of [place] coronary artery without angina pectoris Plan: continue current medical therapy (3) DM type 2 causing CKD stage 4 Code(s): E11.22 - TYPE 2 DIABETES MELLITUS W DIABETIC CHRONIC KIDNEY DISEASE; N18.4 - CHRONIC KIDNEY DISEASE, STAGE 4 (SEVERE) Status: Acute Qualifiers: Diabetes mellitus detention insulin use: without watermelon harvesting supervisor use Qualified Code(s): E11.22 - Type 2 diabetes mellitus with diabetic chronic kidney disease ; N18.4 - Chronic kidney disease, stage 4 (severe) Plan: continue with bedside glucose monitoring and insulin sliding scale (4) Atrial fibrillation with controlled ventricular response Code(s): I48.91 - UNSPECIFIED ATRIAL FIBRILLATION Status: Chronic Plan: rate controlled; not a candidate for detention anticoagulation (5) Chronic systolic HF (heart failure) Code(s): I50.22 - CHRONIC SYSTOLIC (CONGESTIVE) HEART FAILURE Status: Chronic - Plan discharge planning
--- NOTE | 2018-12-02 19:48 | PDOC.CPN ---
- Subjective Date: 12/02/18 Time: 19:46 Interval history: No new issues. No angina, SOB at baseline. - Review of Systems General: denies: fever/chills, weight/appetite/sleep changes, night sweats, fatigue Respiratory: reports: shortness of breath. denies: cough, congestion, exercise intolerance Cardiovascular: denies: chest pain, palpitation, edema, paroxysmal nocturnal dyspnea, orthopnea Gastrointestinal: denies: nausea, vomiting, diarrhea, constipation, abd pain, GI bleeding Musculoskeletal: denies: pain, tenderness, stiffness, swelling, arthritis/ arthralgias Neurological: denies: numbness, syncope, seizure, weakness - Objective Allergies/Adverse Reactions: Allergies Allergy/AdvReac Type Severity Reaction Status Date / Time Iodine and Iodide Containing Allergy Verified 11/26/18 05:04 Produc Visit Medications: Current Medications Acetaminophen (Tylenol) 650 mg PO Q4H PRN PRN Reason: Headache/Fever/Mild Pain (1-3) Last Admin: 12/02/18 13:09 Dose: 650 mg Albuterol/Ipratropium (Duoneb) 3 ml NEB TID-RT [facility] Last Admin: 12/02/18 19:44 Dose: 3 ml Allopurinol (Zyloprim) 100 mg PO DAILY [facility] Last Admin: 12/02/18 08:54 Dose: 100 mg Atorvastatin Calcium (Lipitor) 20 mg PO DAILY [facility] Last Admin: 12/02/18 08:54 Dose: 20 mg Calcitriol (Rocaltrol) 0.25 mcg PO DAILY [facility] Last Admin: 12/02/18 08:55 Dose: 0.25 mcg Calcium Carbonate (Tums) 1,500 mg PO TID [facility] Last Admin: 12/02/18 16:39 Dose: 1,500 mg Carvedilol (Coreg) 12.5 mg PO BID-WM [facility] Last Admin: 12/02/18 16:39 Dose: 12.5 mg Diphenhydramine HCl (Benadryl) 25 mg PO Q4H PRN PRN Reason: Itching & Insomnia Last Admin: 12/02/18 08:54 Dose: 25 mg Ergocalciferol (Drisdol) 1.25 mg PO Q7DAYS [facility] Last Admin: 11/27/18 10:11 Dose: 1.25 mg Ferrous Sulfate (Feosol) 325 mg PO QAM-WM [facility] Last Admin: 12/02/18 08:55 Dose: 325 mg Furosemide (Lasix) 40 mg PO 0900,1400 [facility] Last Admin: 12/02/18 13:04 Dose: 40 mg Promethazine HCl 12.5 mg/ (Sodium Chloride) 50.5 mls @ 202 mls/hr IVPB Q6H PRN PRN Reason: Nausea Last Admin: 11/25/18 23:32 Dose: 50.5 mls Ondansetron HCl (Zofran) 4 mg IVP Q6H PRN PRN Reason: Nausea/Vomiting Last Admin: 11/26/18 06:14 Dose: 4 mg Pantoprazole Sodium (Protonix) 40 mg IVP Q12HR [facility] Last Admin: 12/02/18 10:18 Dose: 40 mg Prednisone (Prednisone) 20 mg PO QAM-WM [facility] Stop: 12/07/18 08:01 Sodium Chloride (Flush - Normal Saline) 10 ml IVF Q12HR [facility] Last Admin: 12/02/18 10:18 Dose: 10 ml Sodium Chloride (Flush - Normal Saline) 10 ml IVF PRN PRN PRN Reason: Saline Flush Last Admin: 11/30/18 20:02 Dose: 10 ml Terazosin HCl (Hytrin) 10 mg PO DAILY [facility] Last Admin: 12/02/18 08:55 Dose: 10 mg Tramadol HCl (Ultram) 50 mg PO Q6H PRN PRN Reason: Moderate Pain (4-6) Last Admin: 12/02/18 13:09 Dose: 50 mg Vital Signs & Weight: Vital Signs Temp Pulse Pulse Pulse Resp BP BP 12/02/18 19:44 66 16 12/02/18 16:39 125/59 L 12/02/18 15:55 98.0 F 76 16 12/02/18 14:01 60 14 12/02/18 12:29 97.9 F 76 18 12/02/18 09:42 88 89 136/69 12/02/18 09:00 12/02/18 08:54 150/84 H BP BP Pulse Ox 12/02/18 19:44 98 12/02/18 16:39 12/02/18 15:55 125/59 L 93 L 12/02/18 14:01 98 12/02/18 12:29 124/60 95 12/02/18 09:42 137/62 09/28/19 09:00 93 L 12/02/18 08:54 Weight 160 lb 3.2 oz - Physical Exam General: alert & oriented x3, no apparent distress HEENT: mucus membranes moist, normocephaly Neck: supple neck, midline trachea Cardiac: regular rate and rhythm, no murmur Lungs: clear to auscultation, no wheeze, rales, rhonchi Neuro: grossly intact, coordination normal Abdomen: active bowel sounds, soft, non-tender Skin: clear Musculoskeletal: normal range of motion - Labs Result Diagrams: 12/02/18 04:35 12/02/18 04:33 Troponin/CKMB CK-MB (CK-2) 152.9 ng/mL (0-6.6) H* 11/26/18 14:43 Troponin I 44.660 ng/mL (< 0.028) H* 11/27/18 17:21 - Telemetry Sinus rhythms and dysrhythmias: sinus rhythm - Assessment/Plan Assessment/Plan: 1. Type 2 type of [place], demand ischemia. 2. Severe Anemia 2/2 upper GI bleed. 3. Afib with RVR - remains in SR 4. Chronic Systolic HF with EF 30-35% 5. CAD 6. CKD 7. HTN 8. HLD 9. DM type 2 10. COPD 11. hx of CVA PLAN: - Not a candidate for OAC due GI bleeding. - Consider watchman or Lariat as outpatient. - Lifevest before discharge.
[2018-12-03] MEDS: diphenhydrAMINE 25 MG CAP PO PRN ×2 (04:39→21:58)
[2018-12-03 06:32] LABS: #Lymphocytes 0.5 thou/uL (1.20-3.40); #Monocytes 0.3 thou/uL (0.11-0.59); #Neutrophils 4.6 thou/uL (1.40-6.50); %Basophils 0.6 % (0.0-1.0); %Eosinophils 0.6 % (0.0-10.0); %Lymphocytes 8.5 % (21.0-51.0); %Neutrophils 84.4 % (42.0-75.0); Hemoglobin 10.5 g/dL (14.0-18.0); Mean Corpuscular HGB CONC 33.3 g/dL (32.0-36.0); Mean Corpuscular Hemoglobin 30.4 pg (27.0-31.0); Mean Corpuscular Volume 91.2 fL (78.0-98.0); Mean Platelet Volume 7.4 fL (7.4-10.4); Platelet Count 245 thou/uL (130-400); RBC Distribution Width 15.1 % (11.5-14.5); Red Blood Cell (RBC) Count 3.46 mill/uL (4.70-6.10); White Blood Cell (WBC) Count 5.4 thou/uL (4.8-10.8)
[2018-12-03 06:47] LABS: Anion Gap 14 mmol/L (10-20); BUN (Urea Nitrogen) 61 mg/dL (8.4-25.7); Calc. Creatinine Clearance 23 mL/min (70-130); Calcium 8.2 mg/dL (7.8-10.44); Carbon Dioxide 25 mmol/L (23-31); Chloride 107 mmol/L (98-107); Estimated GFR-MDRD 21; Glucose 97 mg/dL (83-110); Magnesium 1.6 mg/dL (1.6-2.6); Potassium 3.6 mmol/L (3.5-5.1); Sodium 142 mmol/L (136-145)
[2018-12-03] MEDS: Furosemide 40 MG TAB PO SCH ×2 (10:07→15:07)
[2018-12-03] MEDS: Allopurinol 100 MG TAB PO SCH (10:10)
[2018-12-03] MEDS: Terazosin HCl 5 MG CAP PO SCH (10:10)
[2018-12-03] MEDS: Acetaminophen 325 MG TAB PO PRN (10:10)
[2018-12-03] MEDS: Carvedilol 6.25 MG TAB PO SCH ×2 (10:11→17:26)
[2018-12-03] MEDS: Calcium Carbonate 500 MG ChewTAB PO SCH ×3 (10:12→21:58)
[2018-12-03] MEDS: Ferrous Sulfate 325 MG TAB PO SCH (10:12)
[2018-12-03] MEDS: Calcitriol 0.25 MCG CAP PO SCH (10:12)
[2018-12-03] MEDS: Atorvastatin Calcium 20 MG TAB PO SCH (10:12)
[2018-12-03] MEDS: Pantoprazole 40 MG VIAL IVP SCH ×2 (10:13→21:58)
[2018-12-03] MEDS: predniSONE 20 MG TAB PO SCH (10:13)
--- NOTE | 2018-12-03 14:21 | PDOC.CPN ---
- Subjective Date: 12/03/18 Time: 14:19 Interval history: No new issues. No angina. SOB at baseline. - Review of Systems General: denies: fever/chills, weight/appetite/sleep changes, night sweats, fatigue Respiratory: reports: cough, shortness of breath. denies: congestion, exercise intolerance Cardiovascular: reports: edema. denies: chest pain, palpitation, paroxysmal nocturnal dyspnea, orthopnea Gastrointestinal: denies: nausea, vomiting, diarrhea, constipation, abd pain, GI bleeding Musculoskeletal: denies: pain, tenderness, stiffness, swelling, arthritis/ arthralgias Neurological: denies: numbness, syncope, seizure, weakness - Objective Allergies/Adverse Reactions: Allergies Allergy/AdvReac Type Severity Reaction Status Date / Time Iodine and Iodide Containing Allergy Verified 11/26/18 05:04 Produc Visit Medications: Current Medications Acetaminophen (Tylenol) 650 mg PO Q4H PRN PRN Reason: Headache/Fever/Mild Pain (1-3) Last Admin: 12/03/18 10:10 Dose: 650 mg Albuterol/Ipratropium (Duoneb) 3 ml NEB TID-RT [facility] Last Admin: 12/03/18 13:38 Dose: 3 ml Allopurinol (Zyloprim) 100 mg PO DAILY [facility] Last Admin: 12/03/18 10:10 Dose: 100 mg Atorvastatin Calcium (Lipitor) 20 mg PO DAILY [facility] Last Admin: 12/03/18 10:12 Dose: 20 mg Calcitriol (Rocaltrol) 0.25 mcg PO DAILY [facility] Last Admin: 12/03/18 10:12 Dose: 0.25 mcg Calcium Carbonate (Tums) 1,500 mg PO TID [facility] Last Admin: 12/03/18 10:12 Dose: 1,500 mg Carvedilol (Coreg) 12.5 mg PO BID-WM [facility] Last Admin: 12/03/18 10:11 Dose: 12.5 mg Diphenhydramine HCl (Benadryl) 25 mg PO Q4H PRN PRN Reason: Itching & Insomnia Last Admin: 12/03/18 04:39 Dose: 25 mg Ergocalciferol (Drisdol) 1.25 mg PO Q7DAYS [facility] Last Admin: 11/27/18 10:11 Dose: 1.25 mg Ferrous Sulfate (Feosol) 325 mg PO QAM-WM [facility] Last Admin: 12/03/18 10:12 Dose: 325 mg Furosemide (Lasix) 40 mg PO 0900,1400 [facility] Last Admin: 12/03/18 10:07 Dose: 40 mg Promethazine HCl 12.5 mg/ (Sodium Chloride) 50.5 mls @ 202 mls/hr IVPB Q6H PRN PRN Reason: Nausea Last Admin: 11/25/18 23:32 Dose: 50.5 mls Ondansetron HCl (Zofran) 4 mg IVP Q6H PRN PRN Reason: Nausea/Vomiting Last Admin: 11/26/18 06:14 Dose: 4 mg Pantoprazole Sodium (Protonix) 40 mg IVP Q12HR [facility] Last Admin: 12/03/18 10:13 Dose: 40 mg Prednisone (Prednisone) 20 mg PO QAM-[facility] Stop: 12/07/18 08:01 Last Admin: 12/03/18 10:13 Dose: 20 mg Sodium Chloride (Flush - Normal Saline) 10 ml IVF Q12HR [facility] Last Admin: 12/03/18 10:13 Dose: 10 ml Sodium Chloride (Flush - Normal Saline) 10 ml IVF PRN PRN PRN Reason: Saline Flush Last Admin: 11/30/18 20:02 Dose: 10 ml Terazosin HCl (Hytrin) 10 mg PO DAILY [facility] Last Admin: 12/03/18 10:10 Dose: 10 mg Tramadol HCl (Ultram) 50 mg PO Q6H PRN PRN Reason: Moderate Pain (4-6) Last Admin: 12/02/18 13:09 Dose: 50 mg Vital Signs & Weight: Vital Signs Temp Pulse Pulse Pulse Resp BP BP 12/03/18 13:38 70 12 12/03/18 11:46 97.5 F L 77 16 12/03/18 10:11 178/79 H 12/03/18 10:00 12/03/18 09:35 91 83 201/92 H 12/03/18 07:46 98.8 F 78 18 12/03/18 07:07 78 16 12/03/18 04:20 12/03/18 04:00 97.6 F 74 18 12/03/18 03:23 BP BP Pulse Ox 12/03/18 13:38 12/03/18 11:46 172/76 H 94 L 12/03/18 10:11 12/03/18 10:00 94 L 12/03/18 09:35 138/63 12/03/18 07:46 178/79 H 94 L 12/03/18 07:07 93 L 12/03/18 04:20 158/66 H 12/03/18 04:00 185/77 H 95 12/03/18 03:23 98 Weight 160 lb 12.8 oz - Physical Exam General: alert & oriented x3, no apparent distress HEENT: normocephaly Neck: supple neck, midline trachea Cardiac: regular rate and rhythm, no murmur Lungs: normal breath sounds, no wheeze, rales, rhonchi Neuro: grossly intact Abdomen: active bowel sounds, soft, non-tender Skin: clear Musculoskeletal: normal range of motion - Labs Result Diagrams: 12/03/18 06:01 12/03/18 06:01 Troponin/CKMB CK-MB (CK-2) 152.9 ng/mL (0-6.6) H* 11/26/18 14:43 Troponin I 44.660 ng/mL (< 0.028) H* 11/27/18 17:21 - Telemetry Sinus rhythms and dysrhythmias: sinus rhythm - Assessment/Plan Assessment/Plan: 1. Type 2 type of NH, demand ischemia. 2. Severe Anemia 2/2 upper GI bleed. 3. Afib with RVR - remains in SR 4. Chronic Systolic HF with EF 30-35% 5. CAD 6. CKD 7. HTN 8. HLD 9. DM type 2 10. COPD 11. hx of CVA PLAN: - Not a candidate for OAC due GI bleeding. - Consider watchman or Lariat as outpatient. - Lifevest before discharge. - CV stable. - D/C after lifevest set up.
--- NOTE | 2018-12-03 14:55 | PRG ---
DATE OF SERVICE: 12/03/2018 SUBJECTIVE: A 73-year-old gentleman is being seen for acute kidney injury. The patient denied nausea, vomiting, or chest pain. OBJECTIVE: GENERAL: The patient is awake and alert. VITAL SIGNS: Pulse 75, breathing 16, blood pressure was 138/63. GENERAL APPEARANCE AND MENTAL STATUS: Fair. HEAD/NECK: Normocephalic. Atraumatic. EYES: EOMI. No deformity. EARS: Clear. No ulcers. NOSE: Intact. No lesions. MOUTH: Clear. No discharge. THROAT: Clear. No exudate. LUNGS: Clear. No crackles. CARDIAC: S1, S2. No rub. ABDOMEN: Benign. Bowel sounds positive. GENITALIA/RECTUM: Albert absent. BACK/EXTREMITIES: Edema 0+. NEUROLOGICAL: Alert and motor intact. LABORATORY DATA: Reviewed. ASSESSMENT AND PLAN: 1. Chronic kidney disease, stage 4, stable. 2. Hypertension, stable. 3. Anemia, stable. 4. Hypocalcemia, improved. 5. Hypomagnesemia, improved and titrated the patient's calcitriol and ergocalciferol as needed based on the calcium levels. Job ID: [id number]
[2018-12-03] MEDS ORDERED: hydrALAZINE 20 MG/ML VIAL SLOW IVP PRN (16:04)
--- NOTE | 2018-12-03 16:56 | EKG ---
Test Reason : Blood Pressure : / mmHG Vent. Rate : 100 BPM Atrial Rate : 100 BPM P-R Int : 162 ms QRS Dur : 104 ms QT Int : 404 ms P-R-T Axes : 044 081 -75 degrees QTc Int : 521 ms Sinus rhythm with Premature supraventricular complexes Cannot rule out Inferior infarct , age undetermined Prolonged QT Abnormal ECG When compared with ECG of 25-NOV-2018 05:28, (Unconfirmed) QRS duration has increased Criteria for Septal infarct are no longer Present Minimal criteria for Inferior infarct are now Present T wave inversion now evident in Inferior leads Confirmed by ABRAM CORNEJO (2) on 12/03/2018 4:56:27 PM Referred By: BASIL Confirmed By:ABRAM CORNEJO
--- NOTE | 2018-12-03 17:18 | EKG ---
Test Reason : Blood Pressure : / mmHG Vent. Rate : 079 BPM Atrial Rate : 079 BPM P-R Int : 166 ms QRS Dur : 090 ms QT Int : 432 ms P-R-T Axes : 046 060 216 degrees QTc Int : 495 ms Normal sinus rhythm Septal infarct , age undetermined T wave abnormality, consider inferior ischemia Abnormal ECG No previous ECGs available Confirmed by ABRAM CORNEJO (2) on 12/03/2018 5:18:23 PM Referred By: VIRAJ Confirmed By:ABARM CORNEJO
--- NOTE | 2018-12-03 19:16 | PDOC.HOSPP ---
- Subjective Encounter Date: 12/03/18 Subjective: reports he feels better today; currently waiting for Lifevest; tolerating oral intake; no events overnight - Objective Vital Signs & Weight: Vital Signs (12 hours) Temp Pulse Pulse Pulse Resp BP BP 12/03/18 18:32 80 18 12/03/18 17:26 185/80 H 12/03/18 15:41 98 F 75 16 12/03/18 13:38 70 12 12/03/18 12:45 78 12/03/18 11:46 97.5 F L 77 16 12/03/18 10:11 178/79 H 12/03/18 10:00 12/03/18 09:35 91 83 201/92 H 12/03/18 07:46 98.8 F 78 18 12/03/18 07:07 78 16 BP BP Pulse Ox 12/03/18 18:32 142/66 H 12/03/18 17:26 12/03/18 15:41 185/80 H 93 L 12/03/18 13:38 12/03/18 12:45 162/71 H 12/03/18 11:46 172/76 H 94 L 12/03/18 10:11 12/03/18 10:00 94 L 12/03/18 09:35 138/63 12/03/18 07:46 178/79 H 94 L 12/03/18 07:07 93 L Weight Weight 160 lb 12.8 oz Most Recent Monitor Data Heart Rate from ECG 77 NIBP 124/70 NIBP BP-Mean 88 Respiration from ECG 20 SpO2 98 I&O: 12/02/18 12/03/18 12/04/18 06:59 06:59 06:59 Intake Total 610 1038 480 Output Total 950 Balance -340 1038 480 Result Diagrams: 12/03/18 06:01 12/03/18 06:01 Hospitalist ROS - Review of Systems Respiratory: denies: shortness of breath Cardiovascular: denies: chest pain Gastrointestinal: denies: abdominal pain - Medication Medications: Active Medications Generic Name Dose Route Start Last Admin Trade Name Freq PRN Reason Stop Dose Admin Acetaminophen 650 mg 11/25/18 08:13 12/03/18 10:10 Tylenol PO 650 mg Q4H PRN Administration Headache/Fever/Mild Pain (1-3) Albuterol/Ipratropium 3 ml 11/27/18 12:30 12/03/18 13:38 Duoneb NEB 3 ml TID-RT [facility] Administration Allopurinol 100 mg 11/27/18 09:00 12/03/18 10:10 Zyloprim PO 100 mg DAILY [facility] Administration Atorvastatin Calcium 20 mg 11/27/18 09:00 12/03/18 10:12 Lipitor PO 20 mg DAILY [facility] Administration Calcitriol 0.25 mcg 12/02/18 09:00 12/03/18 10:12 Rocaltrol PO 0.25 mcg DAILY [facility] Administration Calcium Carbonate 1,500 mg 11/28/18 21:00 12/03/18 15:06 Tums PO 1,500 mg TID [facility] Administration Carvedilol 12.5 mg 11/29/18 08:00 12/03/18 17:26 Coreg PO 12.5 mg BID-WM [facility] Administration Diphenhydramine HCl 25 mg 12/02/18 01:14 12/03/18 04:39 Benadryl PO 25 mg Q4H PRN Administration Itching & Insomnia Ergocalciferol 1.25 mg 11/27/18 09:00 11/27/18 10:11 Drisdol PO 1.25 mg Q7DAYS [facility] Administration Ferrous Sulfate 325 mg 11/27/18 08:00 12/03/18 10:12 Feosol PO 325 mg QAM-WM [facility] Administration Furosemide 40 mg 11/30/18 09:00 12/03/18 15:07 Lasix PO 40 mg 0900,1400 [facility] Administration Promethazine HCl 12.5 mg/ 50.5 mls @ 202 mls/hr 11/25/18 14:52 11/25/18 23:32 Sodium Chloride IVPB 50.5 mls Q6H PRN Administration Nausea Ondansetron HCl 4 mg 11/25/18 08:13 11/26/18 06:14 Zofran IVP 4 mg Q6H PRN Administration Nausea/Vomiting Pantoprazole Sodium 40 mg 11/26/18 21:00 12/03/18 10:13 Protonix IVP 40 mg Q12HR [facility] Administration Prednisone 20 mg 12/03/18 08:00 12/03/18 10:13 Prednisone PO 12/07/18 08:01 20 mg QAM-WM [facility] Administration Sodium Chloride 10 ml 11/26/18 09:00 12/03/18 10:13 Flush - Normal Saline IVF 10 ml Q12HR [facility] Administration Sodium Chloride 10 ml 11/25/18 22:35 11/30/18 20:02 Flush - Normal Saline IVF 10 ml PRN PRN Administration Saline Flush Terazosin HCl 10 mg 11/27/18 09:00 12/03/18 10:10 Hytrin PO 10 mg DAILY [facility] Administration Tramadol HCl 50 mg 11/26/18 03:33 12/02/18 13:09 Ultram PO 50 mg Q6H PRN Administration Moderate Pain (4-6) - Exam General Appearance: NAD, awake alert Eye: PERRL, anicteric sclera ENT: normocephalic atraumatic, no oropharyngeal lesions, moist mucosa Neck: supple, symmetric, no JVD, no thyromegaly, no lymphadenopathy, no carotid bruit Heart: RRR, no murmur, no gallops, no rubs, normal peripheral pulses Respiratory: CTAB, no wheezes, no rales, no ronchi, normal chest expansion, no tachypnea, normal percussion Gastrointestinal: soft, non-tender, non-distended, normal bowel sounds, no palpable masses, no hepatomegaly, no splenomegaly, no bruit Extremities: no cyanosis, no clubbing, no edema Skin: normal turgor, no lesions, no rashes Neurological: cranial nerve grossly intact, normal sensation to touch, no weakness, no focal deficits, no new deficit Musculoskeletal: normal tone, normal strength, diffuse muscle atrophy Psychiatric: normal affect, normal behavior, A&O x 3 Hosp A/P (1) Anemia due to blood loss, acute Code(s): D62 - ACUTE POSTHEMORRHAGIC ANEMIA Status: Acute Plan: no anticoagulants; hemoglobin now stabilized (2) CAD (coronary artery disease) Code(s): I25.10 - ATHSCL HEART DISEASE OF [place] CORONARY ARTERY W/O ANG PCTRS Status: Acute Qualifiers: Coronary Disease-Associated Artery/Lesion type: [place] artery [place] vs. transplanted heart: [place] heart Associated angina: without angina Qualified Code(s): I25.10 - Atherosclerotic heart disease of [place] coronary artery without angina pectoris Plan: continue current medical therapy (3) DM type 2 causing CKD stage 4 Code(s): E11.22 - TYPE 2 DIABETES MELLITUS W DIABETIC CHRONIC KIDNEY DISEASE; N18.4 - CHRONIC KIDNEY DISEASE, STAGE 4 (SEVERE) Status: Acute Qualifiers: Diabetes mellitus exterminator insulin use: without correction use Qualified Code(s): E11.22 - Type 2 diabetes mellitus with diabetic chronic kidney disease ; N18.4 - Chronic kidney disease, stage 4 (severe) Plan: continue with bedside glucose monitoring and insulin sliding scale coverage (4) Atrial fibrillation with controlled ventricular response Code(s): I48.91 - UNSPECIFIED ATRIAL FIBRILLATION Status: Chronic (5) Chronic systolic HF (heart failure) Code(s): I50.22 - CHRONIC SYSTOLIC (CONGESTIVE) HEART FAILURE Status: Chronic Plan: oral furosemide; monitor urine output - Plan discharge planning
[2018-12-04] MEDS: Acetaminophen 325 MG TAB PO PRN ×2 (02:29→09:10)
[2018-12-04] MEDS: diphenhydrAMINE 25 MG CAP PO PRN ×2 (04:16→14:09)
[2018-12-04] MEDS: traMADol HCl 50 MG TAB PO PRN ×2 (04:17→17:22)
[2018-12-04] MEDS: Calcitriol 0.25 MCG CAP PO SCH (09:10)
[2018-12-04] MEDS: Calcium Carbonate 500 MG ChewTAB PO SCH ×3 (09:10→20:08)
[2018-12-04] MEDS: Atorvastatin Calcium 20 MG TAB PO SCH (09:10)
[2018-12-04] MEDS: Allopurinol 100 MG TAB PO SCH (09:11)
[2018-12-04] MEDS: Carvedilol 6.25 MG TAB PO SCH ×2 (09:11→17:25)
[2018-12-04] MEDS: Ferrous Sulfate 325 MG TAB PO SCH (09:12)
[2018-12-04] MEDS: predniSONE 20 MG TAB PO SCH (09:12)
[2018-12-04] MEDS: Terazosin HCl 5 MG CAP PO SCH (09:12)
[2018-12-04] MEDS: Furosemide 40 MG TAB PO SCH ×2 (09:13→14:03)
[2018-12-04] MEDS: Pantoprazole 40 MG VIAL IVP SCH ×2 (09:13→20:10)
[2018-12-04] MEDS: Ergocalciferol 1.25 MG(50,000 UNITS) CAP PO SCH (09:19)
--- NOTE | 2018-12-04 10:23 | PRG ---
DATE OF SERVICE: 12/04/2018 SUBJECTIVE: Patient was seen and examined at bedside and overnight events noted. Patient denies any shortness of breath or chest pain or palpitation. No history of nausea or vomiting or diarrhea or fever or chills or cramps. OBJECTIVE: GENERAL: This is a well-built male, in no apparent distress. VITAL SIGNS: Temperature 97.9. Heart rate 73. Respiratory rate 16. Blood pressure 161/70. HEENT: Atraumatic, normocephalic. Oral mucosa is moist NECK: Supple. CARDIOVASCULAR: S1, S2 heard. Rate and rhythm regular. RESPIRATORY: Clear to auscultation. GASTROINTESTINAL: Abdomen is soft. MUSCULOSKELETAL: No tenderness. No edema. DERMATOLOGIC: No skin rash. NEUROLOGIC: Alert and awake and oriented X3. No focal neurologic deficits. Moving all the extremities. PSYCHIATRIC: Mood and affect normal. LABORATORY DATA: Potassium is 3.6, BUN is 61, and creatinine is 2.9. ASSESSMENT AND PLAN: 1. Chronic kidney disease, stage 4, seems to be stable. 2. Hypertension. 3. Anemia. 4. Hypocalcemia, improved. We will monitor. 5. Vitamin D deficiency. Continue on vitamin D. 6. Secondary hyperparathyroidism with vitamin D deficiency. Plan is to continue on calcitriol as tolerated. 7. Hypocalcemia, on calcium supplements. 8. Edema, on Lasix and monitor. 9. Plan to monitor labs. Avoid nephrotoxins and we will follow. Job ID: [id number]
--- NOTE | 2018-12-04 13:51 | PDOC.CPN ---
- Subjective Date: 12/04/18 Time: 08:30 Interval history: The pt seen and examined. No overnight events. No cardiac complaints. - Objective Allergies/Adverse Reactions: Allergies Allergy/AdvReac Type Severity Reaction Status Date / Time Iodine and Iodide Containing Allergy Verified 11/26/18 05:04 Produc Visit Medications: Current Medications Acetaminophen (Tylenol) 650 mg PO Q4H PRN PRN Reason: Headache/Fever/Mild Pain (1-3) Last Admin: 12/04/18 09:10 Dose: 650 mg Albuterol/Ipratropium (Duoneb) 3 ml NEB TID-RT [facility] Last Admin: 12/04/18 12:44 Dose: 3 ml Allopurinol (Zyloprim) 100 mg PO DAILY [facility] Last Admin: 12/04/18 09:11 Dose: 100 mg Atorvastatin Calcium (Lipitor) 20 mg PO DAILY [facility] Last Admin: 12/04/18 09:10 Dose: 20 mg Calcitriol (Rocaltrol) 0.25 mcg PO DAILY [facility] Last Admin: 12/04/18 09:10 Dose: 0.25 mcg Calcium Carbonate (Tums) 1,500 mg PO TID [facility] Last Admin: 12/04/18 09:10 Dose: 1,500 mg Carvedilol (Coreg) 12.5 mg PO BID-WM [facility] Last Admin: 12/04/18 09:11 Dose: 12.5 mg Diphenhydramine HCl (Benadryl) 25 mg PO Q4H PRN PRN Reason: Itching & Insomnia Last Admin: 12/04/18 04:16 Dose: 25 mg Ergocalciferol (Drisdol) 1.25 mg PO Q7DAYS [facility] Last Admin: 12/04/18 09:19 Dose: 1.25 mg Ferrous Sulfate (Feosol) 325 mg PO QAM-WM [facility] Last Admin: 12/04/18 09:12 Dose: 325 mg Furosemide (Lasix) 40 mg PO 0900,1400 [facility] Last Admin: 12/04/18 09:13 Dose: 40 mg Hydralazine HCl (Apresoline) 10 mg SLOW IVP Q4H PRN PRN Reason: Blood Pressure Last Admin: 12/04/18 05:20 Dose: 10 mg Promethazine HCl 12.5 mg/ (Sodium Chloride) 50.5 mls @ 202 mls/hr IVPB Q6H PRN PRN Reason: Nausea Last Admin: 11/25/18 23:32 Dose: 50.5 mls Ondansetron HCl (Zofran) 4 mg IVP Q6H PRN PRN Reason: Nausea/Vomiting Last Admin: 11/26/18 06:14 Dose: 4 mg Pantoprazole Sodium (Protonix) 40 mg IVP Q12HR [facility] Last Admin: 12/04/18 09:13 Dose: 40 mg Prednisone (Prednisone) 20 mg PO QAM-WM [facility] Stop: 12/07/18 08:01 Last Admin: 12/04/18 09:12 Dose: 20 mg Sodium Chloride (Flush - Normal Saline) 10 ml IVF Q12HR [facility] Last Admin: 12/04/18 09:13 Dose: 10 ml Sodium Chloride (Flush - Normal Saline) 10 ml IVF PRN PRN PRN Reason: Saline Flush Last Admin: 11/30/18 20:02 Dose: 10 ml Terazosin HCl (Hytrin) 10 mg PO DAILY [facility] Last Admin: 12/04/18 09:12 Dose: 10 mg Tramadol HCl (Ultram) 50 mg PO Q6H PRN PRN Reason: Moderate Pain (4-6) Last Admin: 12/04/18 04:17 Dose: 50 mg Vital Signs & Weight: Vital Signs Temp Pulse Resp BP BP BP Pulse Ox 12/04/18 12:44 69 16 12/04/18 12:01 97.8 F 73 16 146/63 H 94 L 12/04/18 09:11 161/70 H 12/04/18 08:00 98 12/04/18 07:30 97.9 F 72 16 161/70 H 98 12/04/18 07:20 76 16 98 12/04/18 05:50 74 131/64 12/04/18 05:20 77 12/04/18 04:00 98 F 77 18 186/80 H 95 12/04/18 03:18 97 Weight 157 lb 4.8 oz - Physical Exam General: alert & oriented x3 HEENT: mucus membranes moist Neck: supple neck Cardiac: regular rate and rhythm, S1/S2 Lungs: decreased breath sounds Neuro: cranial nerve 2-12 intact Abdomen: unremarkable - Labs Result Diagrams: 12/03/18 06:01 12/03/18 06:01 Troponin/CKMB CK-MB (CK-2) 152.9 ng/mL (0-6.6) H* 11/26/18 14:43 Troponin I 44.660 ng/mL (< 0.028) H* 11/27/18 17:21 - Telemetry Sinus rhythms and dysrhythmias: sinus rhythm - Assessment/Plan Assessment/Plan: 1. Elevated Trop 2/2 severe anemia leading to repeat PA- asymptomatic;He may need further cardiac eval. in the next few weeks. 2. Severe Anemia 2/2 upper GI hemorrhage with Coumadin - Hgb on 11/29/2018 was 9.2. 3. Afib with RVR - remains in SR; LINQ interrogation showed 1 episode of Afib for 2 mins on 11/24/2018. On 12.5mg BID; Not candidate for OAC due to hx of GI bleed x2 in past 4. Chronic Systolic HF with EF 30-35% - On Coreg; Not on ROZINA/ARB due to hx of CKD; will d/c with LifeVest; he will need a repeat echo in 3 months to eval the EF. 5. CAD - stable; on Coreg, Lipitor, Not on ASA for now due to GI bleed 6. CKD - managed by presiding judge 7. HTN - stable 8. HLD - On statin 9. DM type 2 - managed by PCP 10. COPD - stable with RA 11. hx of CVA x 6; He is s/p CVA in 07/2018 and this is why the loop recorder was inserted to eval. possible arrhythmias as a cause of the CVA. MAR reviewed * Echo in 11/2018 with EF 30-35%, mod dilated LA, small pericardial effusion, mild-mod MR, trace AR, mild TR, and mild with Valve area 1.6 sq cm * The pt is a candidate for a life-vest on d/c. If the EF does not improve he may become a candidate for an AICD. Pt. seen and eval. by me. I agree with the A/P by the SUPERVISOR VENEER. He denies any cardiac complaints at ths time. Chest clear. RRR. No edema. gjmays
[2018-12-04 15:46] VITALS: BP 142/67; TEMP 98
--- NOTE | 2018-12-04 17:28 | DIS ---
DATE OF ADMISSION: 11/25/2018 DATE OF DISCHARGE: 12/04/2018 DISPOSITION: The patient was discharged to senior care. FINAL DIAGNOSES: 1. Acute gastrointestinal bleeding. 2. Acute posthemorrhagic anemia due to gastrointestinal bleeding. 3. Acute on chronic renal failure. 4. Diabetes mellitus type 2 with hyperglycemia and vascular complication. 5. Hyperlipidemia. 6. Essential hypertension. 7. Osteoarthritis. 8. Chronic obstructive pulmonary disease. 9. History of gout. 10. Acute on chronic systolic congestive heart failure exacerbation. 11. History of cerebrovascular accident. 12. Chronic debility. 13. Atrial fibrillation with controlled ventricular response. 14. History of coronary artery disease. CONDITION: Stable and improved. DIET: Heart healthy diet. MEDICATIONS: Please refer to medication discharge reconciliation form. ACTIVITY: As tolerated. Do not over exert yourself. No strenuous activity. INSTRUCTIONS: If any fevers, chills, nausea, vomiting, chest pain, shortness of breath, bleeding, swelling, weakness, or numbness, seek immediate medical attention. FOLLOWUP: Follow up with primary care physician in 1 week and follow up with Cardiology in 2 weeks. CONSULTANTS: 1. Joo Curtis MD. 2. Suzy Brown MD. 3. Magdi Phan MD. 4. Elias Olson MD. BRIEF HOSPITAL COURSE: Mr. Loy Ayers is a pleasant 73-year-old male with history of chronic kidney disease, congestive heart failure, chronic atrial fibrillation, who had presented to the emergency room with acute kidney injury. He was also found to have acute posthemorrhagic anemia due to gastrointestinal bleeding, for which his anticoagulation was discontinued due to active bleeding. He did not have any acute coronary event. He did have acute on chronic systolic congestive heart failure, for which he was diuresed. He was not on Coreg and he was not on an ROZINA or an ARB due to history of chronic kidney disease, for which the patient will be discharged on a LifeVest today as these arrangements had been made through [facility]. He will need a repeat echocardiogram in 3 months to evaluate his ejection fraction as he may be a candidate for an AICD at that time and there were no signs of infection. On the day of discharge, during my [id number] meeting with the patient, I discussed all discharge instructions including the need for compliance with medication, followup, and when to return to the emergency room, for which he has verbalized understanding. TIME SPENT: Total discharge time spent 40 minutes. Job ID: [id number]
== END 2018-12-04 21:11 | DRG 377 ==
LOC: ERS 05:03 → IMCU/EMU 06:46 → 2SE 11-29 15:04
PROVIDERS: ADMIT Hospitalist; ATTEND Hospitalist
PROC: 30233N1 Transfusion of Nonautologous Red Blood Cells into Peripheral Vein, Percutaneous Approach (ICD-10-PCS; 2018-11-25)
PROC: 30283B1 Transfusion of Nonautologous 4-Factor Prothrombin Complex Concentrate into Vein, Percutaneous Approach (ICD-10-PCS; 2018-11-25)
PROC: 0W3P8ZZ Control Bleeding in Gastrointestinal Tract, Via Natural or Artificial Opening Endoscopic (ICD-10-PCS; principal; 2018-11-26)
PROC: 3E0234Z Introduction of Serum, Toxoid and Vaccine into Muscle, Percutaneous Approach (ICD-10-PCS; 2018-11-26)
DX: K25.4 Chronic or unspecified gastric ulcer with hemorrhage (principal); I21.A1 Myocardial infarction type 2; I50.23 Acute on chronic systolic (congestive) heart failure; N17.0 Acute kidney failure with tubular necrosis; D68.32 Hemorrhagic disorder due to extrinsic circulating anticoagulants; I13.0 Hypertensive heart and chronic kidney disease with heart failure and stage 1 through stage 4 chronic kidney disease, or unspecified chronic kidney disease; D62 Acute posthemorrhagic anemia; N18.4 Chronic kidney disease, stage 4 (severe); E87.0 Hyperosmolality and hypernatremia; I31.3 Pericardial effusion (noninflammatory); N25.81 Secondary hyperparathyroidism of renal origin; I25.10 Atherosclerotic heart disease of native coronary artery without angina pectoris; E11.22 Type 2 diabetes mellitus with diabetic chronic kidney disease; E78.5 Hyperlipidemia, unspecified; M19.90 Unspecified osteoarthritis, unspecified site; J44.9 Chronic obstructive pulmonary disease, unspecified; G30.9 Alzheimer's disease, unspecified; F02.80 Dementia in other diseases classified elsewhere, unspecified severity, without behavioral disturbance, psychotic disturbance, mood disturbance, and anxiety; M10.021 Idiopathic gout, right elbow; I95.9 Hypotension, unspecified; N40.0 Benign prostatic hyperplasia without lower urinary tract symptoms; B19.20 Unspecified viral hepatitis C without hepatic coma; T45.515A Adverse effect of anticoagulants, initial encounter; I08.3 Combined rheumatic disorders of mitral, aortic and tricuspid valves; E11.65 Type 2 diabetes mellitus with hyperglycemia; I48.2 Chronic atrial fibrillation; D63.1 Anemia in chronic kidney disease; I25.5 Ischemic cardiomyopathy; K31.819 Angiodysplasia of stomach and duodenum without bleeding; E83.42 Hypomagnesemia; E87.6 Hypokalemia; E83.51 Hypocalcemia; Z87.891 Personal history of nicotine dependence; Z88.1 Allergy status to other antibiotic agents; Z86.73 Personal history of transient ischemic attack (TIA), and cerebral infarction without residual deficits; Z95.1 Presence of aortocoronary bypass graft; Z79.4 Long term (current) use of insulin; Z79.899 Other long term (current) drug therapy; Z79.82 Long term (current) use of aspirin; Z79.01 Long term (current) use of anticoagulants; Z23 Encounter for immunization; Z91.041 Radiographic dye allergy status
CPT/HCPCS: 36415; 36416; 36430; 71045; 80048; 80053; 81003; 81015; 82306; 82330; 82550; 82553; 82652; 83690; 83735; 83970; 84100; 84484; 85014; 85018; 85025; 85610; 85730; 86850; 86900; 86901; 93005; 93010; 93306; 93798; 94640; 96361; 96365; 96375; 96376; 99292; C9113; C9132; J0360; J1940; J2405; J2550; J3430; J3475; J3490; J7512; J7620; P9016; Q0163